=== PATIENT | male | born 1960 | race American Indian/Alaskan Native ===

== ENCOUNTER 2016-11-05 19:48 | Emergency (ER) | payer OTHER ==
[2016-11-05 19:58] VITALS: BP 155/92; PULSE 90; RESP 17; TEMP 98.2; O2SAT 97
--- NOTE | 2016-11-05 20:29 | ED PDOC ---
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 Patient states he tripped over object on floor and fell face forward. Fall witnessed by Jazz, no LOC. Patient in cervical collar; states he was diagnosed with cervical fracture (non surgical treatment) approx 3 weeks ago. Denies headache , dizziness, vision changes, extremity numbness/weakness, neck pain, back pain, shortness of breath. Past Medical History Reviewed: Historical Data, Nursing Documentation, Vital Signs Vital Signs: Last Vital Signs Temp 98.2 F 11/05/16 19:56 Pulse 90 11/05/16 19:56 Resp 17 11/05/16 19:56 BP 155/92 H 11/05/16 19:56 Pulse Ox 97 11/05/16 19:56 - Medical History PMH: Anxiety, CAD, Seizures - Surgical History Surgical History: No Surg Hx - Family History Family History: States: Unknown Family Hx - Living Arrangements Living Arrangements: [facility] - Immunization History Hx Tetanus Toxoid Vaccination: No (unknown) - Allergies Allergies/Adverse Reactions: Allergies Allergy/AdvReac Type Severity Reaction Status Date / Time No Known Allergies Allergy Verified 11/05/16 19:58 Review of Systems ROS Statement: Except As Marked, All Systems Reviewed And Found Negative Skin: Positive for: Other (head/facial injury) Physical Exam - Reviewed Nursing Documentation Reviewed: Yes Vital Signs Reviewed: Yes - Physical Exam Appears: Positive for: Well, Non-toxic, No Acute Distress Head Exam: Negative for: ATRAUMATIC (0.5cm superficial laceration left frontal scalp with + surrounding hematoma; minimal active bleeding) Skin: Positive for: Normal Color Eye Exam: Positive for: EOMI, PERRL, Periorbital swelling (left), Other (0.5cm superficial laceration inferior to left eyebrow; no active bleeding; surrounding tenderness noted. Abrasion left cheek). Negative for: Periorbital tenderness, Conjunctival injection ENT: Positive for: Normal ENT Inspection Neck: Positive for: Normal Cardiovascular/Chest: Positive for: Regular Rate, Rhythm Respiratory: Positive for: Normal Breath Sounds Gastrointestinal/Abdominal: Positive for: Normal Exam Back: Positive for: Normal Inspection Extremity: Positive for: Normal ROM Neurologic/Psych: Positive for: Alert, Oriented - ECG O2 Sat by Pulse Oximetry: 97 - Progress ED Course And Treament: CT head, CT cspine, CT facial, Tylenol PO, Boostrix IM EXAM: CT Head Without Intravenous Contrast CLINICAL HISTORY: 56 years old, male; Injury or trauma; Fall; Initial encounter; Blunt trauma ( contusions or hematomas) TECHNIQUE: Axial computed tomography images of the head/brain without intravenous contrast. This CT exam was performed using one or more of the following dose reduction techniques: automated exposure control, adjustment of the mA and/or kV according to patient size, and/or use of iterative reconstruction technique. Coronal and sagittal reformatted images were created and reviewed. EXAM DATE/TIME: 11/05/2016 8:25 PM COMPARISON: No relevant prior studies available. FINDINGS: BRAIN: Diffuse, mild, age-related cortical atrophy and ventriculomegaly. No significant acute abnormality identified. No acute hemorrhage seen within the brain. No acute extra-axial fluid collections visualized. No evidence of significant mass effect within the brain. VENTRICLES: See above. BONES/JOINTS: No acute skull or skull base fractures visualized. SOFT TISSUES: Soft tissue swelling in the anterior scalp and right posterior scalp. SINUSES:. No evidence of sinus fluid levels. MASTOID AIR CELLS: Mastoid air cells appear clear. IMPRESSION: - No evidence of acute intracranial injury. - See above for remaining findings. EXAM: CT Cervical Spine Without Intravenous Contrast CLINICAL HISTORY: 56 years old, male; Injury or trauma; Fall; Initial encounter; Blunt trauma; Additional info: New fall, h/o cervical FX TECHNIQUE: Axial computed tomography images of the cervical spine without intravenous contrast. This CT exam was performed using one or more of the following dose reduction techniques : automated exposure control, adjustment of the mA and/or kV according to patient size, and/ or use of iterative reconstruction technique. Coronal and sagittal reformatted images were created and reviewed. EXAM DATE/TIME: 11/05/2016 8:25 PM COMPARISON: No relevant prior studies available. FINDINGS: VERTEBRAE: Best seen on image 85 of series 604, there is a fracture of the right lamina of C5. This is linear and nondisplaced. It is not significantly comminuted. It appears recent in nature. There is no significant associated callus formation. No additional acute fractures seen. No significant vertebral subluxation seen on the sagittal reformatted images. Normal alignment of C1 and C2 and of the facet joints. DISCS/SPINAL CANAL/NEURAL FORAMINA: Marked multilevel degenerative disc disease. SOFT TISSUES: No acute abnormality of the visualized soft tissues is seen. LUNG APICES: No pneumothorax seen. IMPRESSION: - Nondisplaced fracture of the right lamina of C5. This appears recent in nature , and could represent the patient's known fracture, as the patient has a reported history of a cervical spine fracture 3 weeks prior. Recommend correlation with prior exams/reports. Findings were discussed with Kiera Bell PA-C on 11/05/2016 at 10:20 PM EDT. - No additional fractures seen.. - See above for remaining findings. EXAM: CT Maxillofacial Without Intravenous Contrast CLINICAL HISTORY: 56 years old, male; Injury or trauma; Fall; Initial encounter; Blunt trauma ( contusions or hematomas); Forehead TECHNIQUE: Axial computed tomography images of the face without intravenous contrast. This CT exam was performed using one or more of the following dose reduction techniques: automated exposure control, adjustment of the mA and/or kV according to patient size, and/or use of iterative reconstruction technique. Coronal and sagittal reformatted images were created and reviewed. EXAM DATE/TIME: 11/05/2016 8:25 PM COMPARISON: No relevant prior studies available. FINDINGS: BONES/JOINTS: Right nasal bone fracture. This is most likely chronic in nature. There is no overlying soft tissue swelling. Recommend clinical correlation. No additional fractures seen. SOFT TISSUES: Left periorbital soft tissue swelling. ORBITS: Intraorbital soft tissues appear grossly intact. No evidence of significant orbital emphysema. SINUSES: Visualized paranasal sinuses appear clear, except for a mucous retention cyst in the right maxillary sinus and minimal mucosal thickening in the bilateral ethmoid sinuses. No evidence of sinus fluid levels. IMPRESSION: - Right nasal bone fracture, which is most likely chronic in nature. Recommend clinical correlation. - No additional fractures seen. - See above for remaining findings. facial lacerations/abrasions irrigated with 250mL NS. Steri strips applied to forehead laceration, left eyebrow laceration. Bacitracin applied to left cheek abrasion. Patient with known cervical spine fracture Advised to follow up as previously instructed. Patient/aide educated on wound care. Follow up PMD 2-3 days. Ice affected areas. Return to ED for fever, increased pain/redness/swelling from wound sites, discharge from wound sites, or other concerning symptoms. Tylenol PRN pain. Disposition - Clinical Impression Clinical Impression: Head injury, Periorbital contusion of left eye, Forehead laceration, Facial abrasion, Cervical spine fracture - Patient ED Disposition Is Patient to be Admitted: No Counseled Patient/Family Regarding: Studies Performed, Diagnosis, Need For Followup - Disposition Disposition: Routine/Home Disposition Time: 23:00 Condition: STABLE Additional Instructions: Follow up with primary doctor in 2-3 days. Follow up with specialist as previously instructed for history of cervical spine fracture. Ice affected areas. Keep steri-strips covered/dry for 24 hours. Once steri-strips fall off wounds, can apply bacitracin/neosporin ointment daily. Return to ED for fever, discharge from wound sites, spreading redness around wound sites, or other concerning symptoms. Instructions: Laceration (ED), Contusion in Adults (ED), Steristrips (ED)
--- NOTE | 2016-11-05 22:04 | CT ---
EXAM: CT Head Without Intravenous Contrast CLINICAL HISTORY: 56 years old, male; Injury or trauma; Fall; Initial encounter; Blunt trauma (contusions or hematomas) TECHNIQUE: Axial computed tomography images of the head/brain without intravenous contrast. This CT exam was performed using one or more of the following dose reduction techniques: automated exposure control, adjustment of the mA and/or kV according to patient size, and/or use of iterative reconstruction technique. Coronal and sagittal reformatted images were created and reviewed. EXAM DATE/TIME: 11/05/2016 8:25 PM COMPARISON: No relevant prior studies available. FINDINGS: BRAIN: Diffuse, mild, age-related cortical atrophy and ventriculomegaly. No significant acute abnormality identified. No acute hemorrhage seen within the brain. No acute extra-axial fluid collections visualized. No evidence of significant mass effect within the brain. VENTRICLES: See above. BONES/JOINTS: No acute skull or skull base fractures visualized. SOFT TISSUES: Soft tissue swelling in the anterior scalp and right posterior scalp. SINUSES:. No evidence of sinus fluid levels. MASTOID AIR CELLS: Mastoid air cells appear clear. IMPRESSION: - No evidence of acute intracranial injury. - See above for remaining findings.
--- NOTE | 2016-11-05 22:21 | CT ---
EXAM: CT Cervical Spine Without Intravenous Contrast CLINICAL HISTORY: 56 years old, male; Injury or trauma; Fall; Initial encounter; Blunt trauma; Additional info: New fall, h/o cervical FX TECHNIQUE: Axial computed tomography images of the cervical spine without intravenous contrast. This CT exam was performed using one or more of the following dose reduction techniques: automated exposure control, adjustment of the mA and/or kV according to patient size, and/or use of iterative reconstruction technique. Coronal and sagittal reformatted images were created and reviewed. EXAM DATE/TIME: 11/05/2016 8:25 PM COMPARISON: No relevant prior studies available. FINDINGS: VERTEBRAE: Best seen on image 85 of series 604, there is a fracture of the right lamina of C5. This is linear and nondisplaced. It is not significantly comminuted. It appears recent in nature. There is no significant associated callus formation. No additional acute fractures seen. No significant vertebral subluxation seen on the sagittal reformatted images. Normal alignment of C1 and C2 and of the facet joints. DISCS/SPINAL CANAL/NEURAL FORAMINA: Marked multilevel degenerative disc disease. SOFT TISSUES: No acute abnormality of the visualized soft tissues is seen. LUNG APICES: No pneumothorax seen. IMPRESSION: - Nondisplaced fracture of the right lamina of C5. This appears recent in nature, and could represent the patient's known fracture, as the patient has a reported history of a cervical spine fracture 3 weeks prior. Recommend correlation with prior exams/reports. Findings were discussed with Kiera Bell PA-C on 11/05/2016 at 10:20 PM EDT. - No additional fractures seen.. - See above for remaining findings.
--- NOTE | 2016-11-05 22:26 | CT ---
EXAM: CT Maxillofacial Without Intravenous Contrast CLINICAL HISTORY: 56 years old, male; Injury or trauma; Fall; Initial encounter; Blunt trauma (contusions or hematomas); Forehead TECHNIQUE: Axial computed tomography images of the face without intravenous contrast. This CT exam was performed using one or more of the following dose reduction techniques: automated exposure control, adjustment of the mA and/or kV according to patient size, and/or use of iterative reconstruction technique. Coronal and sagittal reformatted images were created and reviewed. EXAM DATE/TIME: 11/05/2016 8:25 PM COMPARISON: No relevant prior studies available. FINDINGS: BONES/JOINTS: Right nasal bone fracture. This is most likely chronic in nature. There is no overlying soft tissue swelling. Recommend clinical correlation. No additional fractures seen. SOFT TISSUES: Left periorbital soft tissue swelling. ORBITS: Intraorbital soft tissues appear grossly intact. No evidence of significant orbital emphysema. SINUSES: Visualized paranasal sinuses appear clear, except for a mucous retention cyst in the right maxillary sinus and minimal mucosal thickening in the bilateral ethmoid sinuses. No evidence of sinus fluid levels. IMPRESSION: - Right nasal bone fracture, which is most likely chronic in nature. Recommend clinical correlation. - No additional fractures seen. - See above for remaining findings.
== END 2016-11-05 23:17 | disposition home or self-care (01) ==
LOC: H.ER 19:48
DX: S05.12XA Contusion of eyeball and orbital tissues, left eye, initial encounter (principal); S01.81XA Laceration without foreign body of other part of head, initial encounter; S12.401A Unspecified nondisplaced fracture of fifth cervical vertebra, initial encounter for closed fracture; W01.0XXA Fall on same level from slipping, tripping and stumbling without subsequent striking against object, initial encounter; Y92.89 Other specified places as the place of occurrence of the external cause

== ENCOUNTER 2016-12-04 09:23 | Inpatient (IN) | payer OTHER ==
--- NOTE | 2016-12-04 09:50 | ED PDOC ---
HPI: Head Injury Time Seen by Provider: 12/04/16 09:38 Chief Complaint (Nursing): Trauma Chief Complaint (Provider): Trauma History Per: Patient History/Exam Limitations: no limitations Injury Occurred (Timing): Just Before Arrival Patient States: Fell Striking Head Severity: Mild Loss Of Consciousness: No Additional Complaint(s): Patient is a 56 year old male, brought [facility] ED by EMS from [facility] for fall this morning. As per manager office services of [facility], patient fell twice this morning but has had increasing falls since his C5 fracture in August. Of note, patient has been in a cervical collar since the diagnosis. Past Medical History Reviewed: Historical Data, Nursing Documentation, Vital Signs Vital Signs: Last Vital Signs Temp 98 F 12/04/16 09:24 Pulse 87 12/04/16 09:24 Resp BP 141/76 12/04/16 09:24 Pulse Ox 97 12/04/16 09:24 - Medical History PMH: Anxiety, CAD, Seizures Other PMH: C5 fracture - Surgical History Surgical History: No Surg Hx - Family History Family History: States: Unknown Family Hx - Living Arrangements Living Arrangements: Other ([facility]) - Immunization History Hx Tetanus Toxoid Vaccination: No (unknown) - Home Medications Home Medications: Ambulatory Orders Medication Instructions Recorded Aspirin [Ecotrin] 81 mg PO DAILY 12/04/16 Calcium Carbonate/Vitamin D3 1 tab PO BID 12/04/16 [Oyster Shell Calcium Tablet] Cholecalciferol (Vitamin D3) 2,000 unit PO DAILY 12/04/16 [Vitamin D3] Clonazepam [Klonopin] 0.5 mg PO DAILY 12/04/16 Clonazepam [Klonopin] 0.5 mg PO HS 12/04/16 Lamotrigine [Lamictal] 200 mg PO Q12 12/04/16 Latanoprost 0.005% Opht [Xalatan 1 drop BOTHEYES HS 12/04/16 Opht] Polyethylene Glycol 3350 [Miralax] 17 gm PO DAILY 12/04/16 Zonisamide [Zonegran] 100 mg PO HS 12/04/16 risperiDONE [RisperDAL Tab] 1 mg PO BID 12/04/16 - Allergies Allergies/Adverse Reactions: Allergies Allergy/AdvReac Type Severity Reaction Status Date / Time No Known Allergies Allergy Verified 11/05/16 19:58 Review of Systems ROS Statement: Except As Marked, All Systems Reviewed And Found Negative Constitutional: Negative for: Weakness Eyes: Negative for: Vision Change Cardiovascular: Negative for: Chest Pain Respiratory: Negative for: Shortness of Breath Gastrointestinal: Negative for: Nausea, Vomiting Musculoskeletal: Negative for: Neck Pain, Back Pain Neurological: Negative for: Weakness, Numbness, Headache Physical Exam - Reviewed Nursing Documentation Reviewed: Yes Vital Signs Reviewed: Yes - Physical Exam Appears: Positive for: Non-toxic, No Acute Distress Head Exam: Positive for: ATRAUMATIC, NORMAL INSPECTION Skin: Positive for: Normal Color, Warm Eye Exam: Positive for: Normal appearance Neck: Positive for: Normal ((+) Cervical collar in place) Cardiovascular/Chest: Positive for: Regular Rate, Rhythm. Negative for: Murmur Respiratory: Positive for: Normal Breath Sounds. Negative for: Respiratory Distress Back: Positive for: Normal Inspection. Negative for: Vertebral Tenderness Extremity: Positive for: Normal ROM. Negative for: Calf Tenderness, Deformity Neurologic/Psych: Positive for: Alert (at baseline mental status ) - Laboratory Results Result Diagrams: 12/10/16 06:47 12/10/16 06:47 - ECG O2 Sat by Pulse Oximetry: 97 (RA) Pulse Ox Interpretation: Normal - Critical Care Total Time (In Min): 30 Medical Decision Making Medical Decision Making: Time: 0950 Initial impression: Fall r/o head injury Initial plan: -- CT-head and cervical neck Time: 1100 CT-head PROCEDURE: CT scan brain dated 12/04/2016 HISTORY: Head injury COMPARISON: Comparison made with prior CT scan brain 11/05/2016. TECHNIQUE: Axial computed tomography images were obtained through the head/brain without intravenous contrast. Radiation dose: Total exam DLP = 889.99 mGy-cm. This CT exam was performed using one or more of the following dose reduction techniques: Automated exposure control, adjustment of the mA and/or kV according to patient size, and/or use of iterative reconstruction technique. FINDINGS: HEMORRHAGE: No acute parenchymal, subarachnoid or extra-axial hemorrhage. BRAIN: Jayjay jayjay There appears to be some very minimal chronic periventricular white matter ischemic changes. Questionable small chronic lacunar-type infarct left inferior basal ganglia versus dilated perivascular space. Mild generalized volume loss is noted. VENTRICLES: No evidence of obstructive hydrocephalus. CALVARIUM: Calvarium appears intact without evidence of acute displaced fracture. PARANASAL SINUSES: Visualized paranasal sinuses are well-developed. Mild mucosal thickening seen within the ethmoid air complex. Old right nasal bone fracture deformity. . MASTOID AIR CELLS: Unremarkable as visualized. No inflammatory changes. OTHER FINDINGS: Re- demonstrated is changes of right-sided cataract surgery. IMPRESSION: No acute intracranial hemorrhage. There suspect minimal chronic periventricular white matter ischemic changes. Questionable dilated perivascular space versus tiny chronic lacunar type infarct left inferior basal ganglia. Mild generalized volume loss. Old right nasal bone fracture deformity. Time: 1330 PROCEDURE: CT Cervical Spine without contrast HISTORY: <Head injury> COMPARISON: Comparison made with prior CT scan cervical spine 11/05. TECHNIQUE: Axial computed tomography images were obtained of the cervical spine without the use of intravenous contrast. Coronal and sagittal reformatted images were created and reviewed. Radiation dose: Total exam DLP = mGy-cm. This CT exam was performed using one or more of the following dose reduction techniques: Automated exposure control, adjustment of the mA and/or kV according to patient size, and/or use of iterative reconstruction technique. FINDINGS: VERTEBRAE: Study re- demonstrates mild multilevel chronic appearing anterior stature loss of the C5 and to a lesser degree C6, and less so the remaining levels. . There has been interval slight increase in anterior subluxation C4 over C5. The left- sided superior articular facet joints of C4 are slightly high-riding with respect to the inferior articular facet joint of C5 though not quite the perched. These findings suggest some rotational instability at this at the C4- C5 level. Moderate kyphosis of results from these changes centered at the C4-C5 level also increased from prior study. The note that these findings were discussed with Dr. Brooks at approximately 10:50 a.m. with written down and read back verification. DISCS/SPINAL CANAL/NEURAL FORAMINA: Re- demonstrated is moderate multilevel degenerative spondylosis. At the C2-C3 level, there is mild moderate disc space narrowing. No disc herniation or significant disc bulge. Rule facet joints are mildly hypertrophic with the slight from overgrowth of the joints. Central canal appears adequate. The exit foramina are adequate. Similar changes seen at the C3-C4 level. There is mild moderate disc space narrowing. .No disc herniation or significant disc bulge. Minor on overgrowth of the uncovertebral facets. Central canal and exit foramina do appear adequate. Moderate to significant anterior disc space narrowing noted at the C4-C5 level. No disc herniation or significant disc bulge. Mild hypertrophic uncovertebral facets. Central canal and exit foramina do appear adequate. At the C5-C6 level, there is moderate disc space narrowing. No disc herniation or significant disc bulge. Mildly hypertrophic uncovertebral facet spur however the central canal and exit foramina appear adequate. Similar changes seen at the C6-C7 level. PARASPINAL SOFT TISSUES: Paraspinal soft tissues unremarkable. OTHER FINDINGS: Lung apices are free of focal consolidation on effusion or pneumothorax. Tiny approximately 1.6 mm subpleural nodule right anterior lung apex. Re- demonstrated are multiple small calcifications scattered throughout both palatine tonsils felt to represent chronic postinflammatory sequela IMPRESSION: There has been interval slight increase in anterior subluxation C4 over C5. The left-sided superior articular facet joints of C4 are slightly high-riding with respect to the inferior articular facet joint of C5 though not quite the perched. These findings suggest some rotational instability at this at the C4- C5 level. Moderate kyphosis of results from these changes centered at the C4-C5 level also increased from prior study. . Followup studies could be performed for further evaluation note that these findings were discussed with Dr. Brooks at approximately 10:50 a.m. with written down and read back verification Multilevel degenerative spondylosis. Time: 1415 Case discussed with contacted, requested that Neurosurgery be contacted. Time: [address] Oakley, Neurosurgery oncall, recommends MRI and admission for OR in a couple of days. Scribe Attestation: Documented by Angela Howe acting as a scribe for Mandi Brooks MD MD Scribe Attestation: All medical record entries made by the Scribe were at my direction and personally dictated by me. I have reviewed the chart and agree that the record accurately reflects my personal performance of the history, physical exam, medical decision making, and the department course for this patient. I have also personally directed, reviewed, and agree with the discharge instructions and disposition. Disposition - Clinical Impression Clinical Impression: Closed subluxation of cervical spine - Patient ED Disposition Is Patient to be Admitted: Yes - Disposition Disposition Time: 14:50 Condition: GUARDED - Pt Status Changed To: Hospital Disposition Of: Inpatient - Admit Certification Admit to Inpatient:: After my assessment, the patient will require hospitalization for at least two midnights. This is because of the severity of symptoms shown, intensity of services needed, and/or the medical risk in this patient being treated as an outpatient. - POA Present On Arrival: Falls Or Trauma
--- NOTE | 2016-12-04 11:01 | CT ---
PROCEDURE: CT scan brain dated 12/04/2016 HISTORY: Head injury COMPARISON: Comparison made with prior CT scan brain 11/05/2016. TECHNIQUE: Axial computed tomography images were obtained through the head/brain without intravenous contrast. Radiation dose: Total exam DLP = 889.99 mGy-cm. This CT exam was performed using one or more of the following dose reduction techniques: Automated exposure control, adjustment of the mA and/or kV according to patient size, and/or use of iterative reconstruction technique. FINDINGS: HEMORRHAGE: No acute parenchymal, subarachnoid or extra-axial hemorrhage. BRAIN: Jayjay jayjay There appears to be some very minimal chronic periventricular white matter ischemic changes. Questionable small chronic lacunar-type infarct left inferior basal ganglia versus dilated perivascular space. Mild generalized volume loss is noted. VENTRICLES: No evidence of obstructive hydrocephalus. CALVARIUM: Calvarium appears intact without evidence of acute displaced fracture. PARANASAL SINUSES: Visualized paranasal sinuses are well-developed. Mild mucosal thickening seen within the ethmoid air complex. Old right nasal bone fracture deformity. . MASTOID AIR CELLS: Unremarkable as visualized. No inflammatory changes. OTHER FINDINGS: Re- demonstrated is changes of right-sided cataract surgery. IMPRESSION: No acute intracranial hemorrhage. There suspect minimal chronic periventricular white matter ischemic changes. Questionable dilated perivascular space versus tiny chronic lacunar type infarct left inferior basal ganglia. Mild generalized volume loss. Old right nasal bone fracture deformity.
--- NOTE | 2016-12-04 12:29 | CT ---
PROCEDURE: CT Cervical Spine without contrast HISTORY: <Head injury> COMPARISON: Comparison made with prior CT scan cervical spine 11/05. TECHNIQUE: Axial computed tomography images were obtained of the cervical spine without the use of intravenous contrast. Coronal and sagittal reformatted images were created and reviewed. Radiation dose: Total exam DLP = mGy-cm. This CT exam was performed using one or more of the following dose reduction techniques: Automated exposure control, adjustment of the mA and/or kV according to patient size, and/or use of iterative reconstruction technique. FINDINGS: VERTEBRAE: Study re- demonstrates mild multilevel chronic appearing anterior stature loss of the C5 and to a lesser degree C6, and less so the remaining levels. . There has been interval slight increase in anterior subluxation C4 over C5. The left-sided superior articular facet joints of C4 are slightly high-riding with respect to the inferior articular facet joint of C5 though not quite the perched. These findings suggest some rotational instability at this at the C4-C5 level. Moderate kyphosis of results from these changes centered at the C4-C5 level also increased from prior study. The note that these findings were discussed with Dr. Brooks at approximately 10:50 a.m. with written down and read back verification. DISCS/SPINAL CANAL/NEURAL FORAMINA: Re- demonstrated is moderate multilevel degenerative spondylosis. At the C2-C3 level, there is mild moderate disc space narrowing. No disc herniation or significant disc bulge. Rule facet joints are mildly hypertrophic with the slight from overgrowth of the joints. Central canal appears adequate. The exit foramina are adequate. Similar changes seen at the C3-C4 level. There is mild moderate disc space narrowing. .No disc herniation or significant disc bulge. Minor on overgrowth of the uncovertebral facets. Central canal and exit foramina do appear adequate. Moderate to significant anterior disc space narrowing noted at the C4-C5 level. No disc herniation or significant disc bulge. Mild hypertrophic uncovertebral facets. Central canal and exit foramina do appear adequate. At the C5-C6 level, there is moderate disc space narrowing. No disc herniation or significant disc bulge. Mildly hypertrophic uncovertebral facet spur however the central canal and exit foramina appear adequate. Similar changes seen at the C6-C7 level. PARASPINAL SOFT TISSUES: Paraspinal soft tissues unremarkable. OTHER FINDINGS: Lung apices are free of focal consolidation on effusion or pneumothorax. Tiny approximately 1.6 mm subpleural nodule right anterior lung apex. Re- demonstrated are multiple small calcifications scattered throughout both palatine tonsils felt to represent chronic postinflammatory sequela IMPRESSION: There has been interval slight increase in anterior subluxation C4 over C5. The left-sided superior articular facet joints of C4 are slightly high-riding with respect to the inferior articular facet joint of C5 though not quite the perched. These findings suggest some rotational instability at this at the C4-C5 level. Moderate kyphosis of results from these changes centered at the C4-C5 level also increased from prior study. . Followup studies could be performed for further evaluation note that these findings were discussed with Dr. Brooks at approximately 10:50 a.m. with written down and read back verification Multilevel degenerative spondylosis.
--- NOTE | 2016-12-04 15:16 | CP.PCM.HP ---
<Sosa Gomez - Last Filed: 12/04/16 15:32> History of Present Illness - History of Present Illness History of Present Illness: 56yo M with PMHx mental retardation and seizure admitted for cervical anterior subluxation C4 over C5. sustained injury after fall to the head today. Denies vision change, n/v, weakness, neck pain. Accompanied by rn case mgr PMHx: as above Shx: NC FHx: NC Social hx: denies x3 Allergies : NKDA d/w attending Present on Admission - Present on Admission Any Indicators Present on Admission: No Review of Systems - Constitutional Constitutional: absent: Chills, Fever - EENT Eyes: absent: Change in Vision - Cardiovascular Cardiovascular: absent: Chest Pain - Respiratory Respiratory: absent: Dyspnea - Gastrointestinal Gastrointestinal: absent: Abdominal Pain, Change in Bowel Habits, Diarrhea, Fecal Incontinence, Nausea, Vomiting - Musculoskeletal Musculoskeletal: absent: Back Pain, Neck Pain Past Patient History - Past Social History Smoking Status: Unknown If Ever Smoked - NEUROLOGICAL Hx Seizures: Yes - HEENT Hx HEENT Problems: Yes Hx Glaucoma: Yes - RENAL Hx Chronic Kidney Disease: No - ENDOCRINE/METABOLIC Hx Endocrine Disorders: No - HEMATOLOGICAL/ONCOLOGICAL Hx Blood Disorders: No - INTEGUMENTARY Hx Dermatological Problems: No - MUSCULOSKELETAL/RHEUMATOLOGICAL Hx Musculoskeletal Disorders: Yes Hx Falls: Yes Hx Unsteady Gait: Yes - GASTROINTESTINAL Hx Gastrointestinal Disorders: No - GENITOURINARY/GYNECOLOGICAL Hx Genitourinary Disorders: No - PSYCHIATRIC Hx Anxiety: Yes - SURGICAL HISTORY Hx Surgeries: Yes Other/Comment: Back surgery - ANESTHESIA Hx Anesthesia: Yes Hx Anesthesia Reactions: No Hx Malignant Hyperthermia: No Meds Allergies/Adverse Reactions: Allergies Allergy/AdvReac Type Severity Reaction Status Date / Time No Known Allergies Allergy Verified 11/05/16 19:58 Physical Exam - Constitutional Appears: Non-toxic, No Acute Distress - Head Exam Head Exam: ATRAUMATIC, NORMAL INSPECTION - Eye Exam Eye Exam: EOMI, PERRL - ENT Exam ENT Exam: Mucous Membranes Moist - Neck Exam Neck exam: Positive for: Normal Inspection - Respiratory Exam Respiratory Exam: Clear to Auscultation Bilateral - Cardiovascular Exam Cardiovascular Exam: REGULAR RHYTHM - GI/Abdominal Exam GI & Abdominal Exam: Normal Bowel Sounds, Soft - Extremities Exam Extremities exam: Positive for: normal inspection - Back Exam Back exam: absent: vertebral tenderness - Neurological Exam Neurological exam: Alert, CN II-XII Intact, Oriented x3 - Skin Skin Exam: Dry, Warm Results - Vital Signs Recent Vital Signs: Last Vital Signs Temp 98 F 12/04/16 09:24 Pulse 87 12/04/16 09:24 Resp BP 141/76 12/04/16 09:24 Pulse Ox 97 12/04/16 14:59 Assessment & Plan - Assessment and Plan (Free Text) Assessment: 56yo M with PMHx MR and seizure admitted for cervical anterior subluxation C4 over C5. cervical anterior subluxation C4 over C5. -CT head: no acute change -MRI C/S -N/S c/s -neuro check -bed rest -pain control -neck brace -last ECHO 2 years ago: mild MR, LVEF 65-70% seizure -c/w home meds MR -c/w home meds DVT ppx -SCDs -held pharmacological agents d/t possible surgery Decision To Admit - Pt Status Changed To: Hospital Disposition Of: Inpatient - Admit Certification Admit to Inpatient:: After my assessment, the patient will require hospitalization for at least two midnights. This is because of the severity of symptoms shown, intensity of services needed, and/or the medical risk in this patient being treated as an outpatient. - . Bed Request Type: Med/Surg Admitting Physician: Lucien Urias <Lucien Urias - Last Filed: 12/08/16 15:12> Results - Vital Signs Recent Vital Signs: Last Vital Signs Temp 97.8 F 12/08/16 09:00 Pulse 84 12/08/16 09:00 Resp 20 12/08/16 09:00 BP 153/64 H 12/08/16 09:00 Pulse Ox 95 12/08/16 09:00 - Labs Result Diagrams: 12/06/16 08:00 12/06/16 08:00 Assessment & Plan - Assessment and Plan (Free Text) Plan: I was present during evaluation and discussed with Dr Sosa leyva plans of care and mgt Lucien Urias M.D.
[2016-12-04 16:24] LABS: BASO % 0.7 % (0.0-2.0); EOS # 0.2 K/uL (0.0-0.7); EOS % 4.9 % (0.0-4.0); HEMATOCRIT 43.8 % (35.0-51.0); LYMPH # 2.1 K/uL (1.0-4.3); LYMPH % 41.2 % (20.0-40.0); MEAN CELL VOLUME 88.4 fl (80.0-94.0); MEAN CORPUSCULAR HEMOGLOBIN 29.2 pg (27.0-31.0); MEAN PLATELET VOLUME 9.2 fl (7.2-11.7); MONO # 0.5 K/uL (0.0-0.8); MONO % 9.2 % (0.0-10.0); NEUT # 2.2 K/uL (1.8-7.0); RED CELL DISTRIBUTION WIDTH 15.2 % (11.5-14.5)
[2016-12-04 16:36] LABS: ALB/GLOB RATIO 1.5 (1.0-2.1); ALKALINE PHOSPHATASE 77 U/L (38-126); ALT/SGPT 45 U/L (21-72); AST/SGOT 37 U/L (17-59); BILIRUBIN,TOTAL 0.4 mg/dl (0.2-1.3); BLOOD UREA NITROGEN 16 mg/dl (9-20); CARBON DIOXIDE 26 mmol/L (22-30); CHLORIDE 103 mmol/L (98-107); GFR AFRICAN-AMERICAN > 60; GLUCOSE,RANDOM 83 mg/dL (75-110); POTASSIUM 4.1 MMOL/L (3.6-5.0); SODIUM 141 mmol/l (132-148)
--- NOTE | 2016-12-04 17:25 | MRI ---
PROCEDURE: MRI of the cervical spine dated 12/04/2016 HISTORY: Cervical subluxation. COMPARISON: Comparison made with prior CT scan of the cervical spine obtained earlier same day TECHNIQUE: Multiecho multiplanar sequences were performed through the cervical spine without the use of intravenous contrast. FINDINGS: The current study reveals no acute compression fractures nor retropulsed fragments. Mild chronic anterior stature loss of the C5, C6 and to a lesser degree remaining levels all of which are felt be degenerative in origin. There is mild reversal of the normal cervical lordosis centered at the C4-C5 level. Previously noted slight anterior subluxation C4 over C5 and high-riding left-sided C4 C5 facet joint appears less pronounced on this study. At remaining vertebral bodies otherwise exhibit relatively normal alignment. At the C4-C5 level, there is marked anterior disc space narrowing with large central and bilateral disc herniation at results in significant cord compression centrally and bilaterally left greater than right. There is moderate central canal stenosis. The hypertrophic uncovertebral facet joints are mildly hypertrophic however the exit foramina appear adequate. At the C5-C6 level, there is also disc desiccation and disc space narrowing more so along the anterior disc margin. Medium-sized central and bilateral disc herniation ridge complex results in mild canal narrowing and cord compression. The disc ridge complex contiguous with hypertrophic uncovertebral joints. The facet joints also hypertrophic. Exit foramina not well delineated due to motion artifact although do appear marginal to adequate. At the C6-C7 level, there is disc desiccation and disc space narrowing with asymmetric small broad-based disc ridge complex contiguous with hypertrophic uncovertebral joints larger on the left than right. The facets are hypertrophic. The there is mild flattening of the ventral surface of the thecal sac and minimal if any flattening of the ventral surface of the cord. Central canal is mildly narrowed. Exit foramina appear stenotic bilaterally. At the C3-C4 level, there is disc desiccation and disc space narrowing. Small central and bilateral disc bulge ridge complex also results in mild canal narrowing and cord compression. The facets are slightly overgrown. Exit foramina appear adequate. At the C2-C3 level, there is disc desiccation and disc space narrowing more so along the anterior disc margin. Small central and bilateral disc bulge of results in mild canal narrowing and cord compression. Facets are hypertrophic on the right and mildly overgrown on the left. Right exit foramen is marginal. Left exit foramen is adequate. No definitive intrinsic signal changes are seen within the visualized spinal cord note however note that this study is limited by motion artifact and subtle signal changes within the spinal cord at the C4-C5 level cannot be completely excluded. Cervicomedullary junction unremarkable. Impression: Multilevel degenerative spondylosis. . Re- demonstrated is slight anterior subluxation C4 over C5 and slightly high-riding left-sided C4 is C5 facet joint appear less pronounced when compared the prior CT scan of the cervical spine. There is however a large disc herniation at this level which results in significant canal compromise and cord compression. While there are no definitive of focal areas of abnormal signal seen in the spinal cord at this time must be noted that this examination is somewhat limited by motion artifact and evaluation for subtle signal changes in the cord cannot be completely excluded. Definitive Neurology/ Neurosurgical consultation recommended. See above discussion for additional findings and details. Findings discussed with 6 [facility] nurse Suzanne Fortune at approximately 5:18 p.m. with written down and read back verification.
[2016-12-04 17:39] LABS: PARTIAL THROMBOPLASTIN TIME 27.1 SECONDS (23.3-32.5)
[2016-12-04] MEDS ORDERED: ZONISAMIDE 100 MG PO SCH (22:00)
[2016-12-04] MEDS: Latanoprost 0.005% Opht SOUTION OU SCH (23:01)
[2016-12-05 07:33] LABS: MEAN CELL VOLUME 87.2 fl (80.0-94.0); MEAN CORPUSCULAR HEMOGLOBIN 29.2 pg (27.0-31.0); MEAN CORPUSCULAR HGB CONC 33.5 g/dL (33.0-37.0); RED CELL DISTRIBUTION WIDTH 15.3 % (11.5-14.5); WHITE BLOOD COUNT 4.3 K/uL (4.8-10.8)
[2016-12-05 07:43] LABS: BLOOD UREA NITROGEN 14 mg/dl (9-20); CALCIUM 9.6 mg/dL (8.4-10.2); CARBON DIOXIDE 24 mmol/L (22-30); CHLORIDE 106 mmol/L (98-107); GFR AFRICAN-AMERICAN > 60; GLUCOSE,RANDOM 96 mg/dL (75-110); SODIUM 141 mmol/l (132-148)
[2016-12-05 07:44] LABS: POTASSIUM 4.1 MMOL/L (3.6-5.0)
[2016-12-05] MEDS: POLYETHYLENE GLYCOL 3350 17 GM/Dose PACKET PO SCH ×2 (08:50→10:41)
--- NOTE | 2016-12-05 11:24 | CP.PCM.PN ---
Subjective - Date & Time of Evaluation Date of Evaluation: 12/05/16 Time of Evaluation: 11:22 - Subjective Subjective: consult dictated C4 C5 sulux/hnp/cord compression will need decompression fixation and fusion d/w legal guardian scheduled for tTues am Objective - Vital Signs/Intake and Output Vital Signs (last 24 hours): Temp Pulse Resp BP Pulse Ox 98.2 F 74 20 127/83 98 12/05/16 08:31 12/05/16 08:31 12/05/16 08:31 12/05/16 08:31 12/05/16 08:31 - Medications Medications: Current Medications Acetaminophen (Tylenol 325mg Tab) 650 mg PO Q4 PRN PRN Reason: Pain, moderate (4-7) Clonazepam (Klonopin) 0.5 mg PO DAILY [facility] Last Admin: 12/05/16 10:41 Dose: 0.5 mg Clonazepam (Klonopin) 0.5 mg PO HS [facility] Last Admin: 12/04/16 23:00 Dose: 0.5 mg Ketorolac Tromethamine (Toradol) 30 mg IVP Q6 PRN PRN Reason: Pain, severe (8-10) Lamotrigine (Lamictal) 200 mg PO Q12H [facility] Last Admin: 12/05/16 05:27 Dose: 200 mg Latanoprost (Xalatan Opht) 1 drop OU HS [facility] Last Admin: 12/04/16 23:01 Dose: 1 drop Polyethylene Glycol (Miralax) 17 gm PO DAILY [facility] Last Admin: 12/05/16 10:41 Dose: 17 gm Risperidone (Risperdal Tab) 1 mg PO BID [facility] Last Admin: 12/05/16 10:41 Dose: 1 mg - Labs Labs: 12/05/16 07:18 12/05/16 07:18 PT 10.7 SECONDS (9.6-11.2) 12/04/16 15:39 INR 1.03 (0.92-1.08) 12/04/16 15:39 APTT 27.1 SECONDS (23.3-32.5) 12/04/16 15:39
--- NOTE | 2016-12-05 15:15 | CON ---
DATE: 12/05/2016 HISTORY OF PRESENT ILLNESS: This is a 56-year-old developmentally disabled gentleman, apparently was seen back in August in [facility], was found to have what was then deemed a spinal fracture. He was placed in an Metz collar and sent to rehabilitation. It appears that because of insurance reasons, he had no followup. It seems that he had some x-rays done here in October which also showed a 4-5 subluxation, again unclear what evaluation and followup he had. In any case, the patient keeps f alling. He has had multiple falls. He himself is incapable of giving history, but I did speak to __ ___, his legal guardian who is aware all the above history. His past medical history, medications, allergies, social history are all reviewed in the EMR. PHYSICAL EXAMINATION: GENERAL: The patient does seem to have good strength in all 4 extremities. Wan is negative bila terally. Plantars though are equivocal. Reflexes seem to be within normal limits. Sensory exam is grossly intact. Gait was not tested. He is in an Metz collar. I reviewed both the CT and the MRI of the cervical spine. There is a significant subluxation with __ ___ facet, but fairly close to it with significant angulation and forward displacement of C4 in relat ion to C5. The MRI documents significant extruded disk at this level with severe cord compression. IMPRESSION AND PLAN: Unequivocally, the patient requires operative decompression, fixation, and fusi on. Specifically, I would advocate C5 corpectomy, diskectomy, complete decompression of the spinal c anal from C4 to C6, placement of a fusion strut and plating fixation. I explained this all to the [employer] services representative. Obviously, the risks include, and the risk of surgery include neurolog ic injury, bleeding, infection, hardware malfunction and . The risk of not operating obviously w ould be paralysis, perhaps with the next time he falls. We will arrange to have this procedure performed in the next available operative day. In the interim , he is going for a cardiac clearance, neurology evaluation for his seizures, etc. Cole Novoa MD cc: [phone] TT: 12/05/2016 15:14:24 Confirmation # [id number] Dictation # [id number] rn
--- NOTE | 2016-12-05 15:29 | RAD ---
HISTORY: Admission COMPARISON: NO PRIOR STUDY AVAILABLE FOR COMPARISON FINDINGS: LUNGS: No acute infiltrate. PLEURA: No significant pleural effusion identified, no pneumothorax apparent. CARDIOVASCULAR: Heart size is within range of normal. Aorta is slightly ectatic and uncoiled. OSSEOUS STRUCTURES: There is mild dextroscoliosis centered in the upper thoracic region possibly due to side bending VISUALIZED UPPER ABDOMEN: Normal. OTHER FINDINGS: None. IMPRESSION: No acute cardiopulmonary disease
--- NOTE | 2016-12-05 15:32 | CP.PCM.PN ---
<Sosa Gomez - Last Filed: 12/05/16 15:29> Subjective - Date & Time of Evaluation Date of Evaluation: 12/05/16 Time of Evaluation: 15:29 - Subjective Subjective: evaluated with attending. no overnight events. Denies pain. Objective - Vital Signs/Intake and Output Vital Signs (last 24 hours): Temp Pulse Resp BP Pulse Ox 98.2 F 74 20 127/83 98 12/05/16 08:31 12/05/16 08:31 12/05/16 08:31 12/05/16 08:31 12/05/16 08:31 - Medications Medications: Current Medications Acetaminophen (Tylenol 325mg Tab) 650 mg PO Q4 PRN PRN Reason: Pain, moderate (4-7) Clonazepam (Klonopin) 0.5 mg PO DAILY [facility] Last Admin: 12/05/16 10:41 Dose: 0.5 mg Clonazepam (Klonopin) 0.5 mg PO HS [facility] Last Admin: 12/04/16 23:00 Dose: 0.5 mg Home Med (Patient's Own Medication) 1 unit PO HS [facility] Ketorolac Tromethamine (Toradol) 30 mg IVP Q6 PRN PRN Reason: Pain, severe (8-10) Lamotrigine (Lamictal) 200 mg PO Q12H [facility] Last Admin: 12/05/16 05:27 Dose: 200 mg Latanoprost (Xalatan Opht) 1 drop OU HS [facility] Last Admin: 12/04/16 23:01 Dose: 1 drop Polyethylene Glycol (Miralax) 17 gm PO DAILY [facility] Last Admin: 12/05/16 10:41 Dose: 17 gm Risperidone (Risperdal Tab) 1 mg PO BID [facility] Last Admin: 12/05/16 10:41 Dose: 1 mg - Labs Labs: 12/05/16 07:18 12/05/16 07:18 PT 10.7 SECONDS (9.6-11.2) 12/04/16 15:39 INR 1.03 (0.92-1.08) 12/04/16 15:39 APTT 27.1 SECONDS (23.3-32.5) 12/04/16 15:39 - Constitutional Appears: Non-toxic, No Acute Distress - Head Exam Head Exam: NORMAL INSPECTION - Eye Exam Eye Exam: Normal appearance - ENT Exam ENT Exam: Mucous Membranes Moist Additional comments: neck brace - Neck Exam Neck Exam: Normal Inspection - Respiratory Exam Respiratory Exam: Clear to Ausculation Bilateral - Cardiovascular Exam Cardiovascular Exam: REGULAR RHYTHM - GI/Abdominal Exam GI & Abdominal Exam: Soft - Extremities Exam Extremities Exam: Normal Inspection - Back Exam Back Exam: NORMAL INSPECTION - Neurological Exam Neurological Exam: Alert, Oriented x3 - Skin Skin Exam: Dry, Warm Assessment and Plan - Assessment and Plan (Free Text) Assessment: 56yo M with PMHx MR and seizure admitted for cervical anterior subluxation C4 over C5. procedure for tues am cervical anterior subluxation C4 over C5. -CT head: no acute change -MRI C/S -N/S c/s -neuro c/s -neuro check -bed rest -pain control -neck brace -last ECHO 2 years ago: mild MR, LVEF 65-70% -ECHO -CXR -Cardio c/s seizure -c/w home meds MR -c/w home meds DVT ppx -SCDs -lovenox <Lucien Urias - Last Filed: 12/08/16 15:13> Objective - Vital Signs/Intake and Output Vital Signs (last 24 hours): Temp Pulse Resp BP Pulse Ox 97.8 F 84 20 153/64 H 95 12/08/16 09:00 12/08/16 09:00 12/08/16 09:00 12/08/16 09:00 12/08/16 09:00 - Medications Medications: Current Medications Acetaminophen (Tylenol 325mg Tab) 650 mg PO Q4 PRN PRN Reason: Pain, moderate (4-7) Clonazepam (Klonopin) 0.5 mg PO DAILY [facility] Last Admin: 12/08/16 09:31 Dose: 0.5 mg Clonazepam (Klonopin) 0.5 mg PO [facility] Last Admin: 12/07/16 21:55 Dose: 0.5 mg Home Med (Patient's Own Medication) 2 unit PO [facility] Last Admin: 12/07/16 21:54 Dose: 2 unit Ketorolac Tromethamine (Toradol) 30 mg IVP Q6 PRN PRN Reason: Pain, severe (8-10) Lamotrigine (Lamictal) 200 mg PO Q12H [facility] Last Admin: 12/08/16 05:00 Dose: 200 mg Latanoprost (Xalatan Opht) 1 drop OU HS [facility] Last Admin: 12/07/16 21:54 Dose: 1 drop Polyethylene Glycol (Miralax) 17 gm PO DAILY [facility] Last Admin: 12/08/16 09:31 Dose: 17 gm Risperidone (Risperdal Tab) 1 mg PO BID [facility] Last Admin: 12/08/16 09:32 Dose: 1 mg - Labs Labs: 12/06/16 08:00 12/06/16 08:00 PT 10.9 SECONDS (9.6-11.2) 12/06/16 08:00 INR 1.05 (0.92-1.08) 12/06/16 08:00 APTT 28.0 SECONDS (23.3-32.5) 12/06/16 08:00 Assessment and Plan - Assessment and Plan (Free Text) Plan: I was present during evaluation reviewed labs medically stable for neuro surgery Lucien Urias M.D.
--- NOTE | 2016-12-05 16:37 | CON ---
DATE: 12/05/2016 REASON FOR CONSULTATION: Preoperative clearance. HISTORY OF PRESENT ILLNESS: The patient is a 56-year-old -[place] male who has history of me ntal and seizures, history of multiple falls, admitted for surgical anterior subluxation of C4 over C5 after a fall and head injury. The patient is being considered for spine surgery. The patien t denies any chest pain or shortness of breath and denies any history of heart attack in the past. H istory is very reliable from the patient. SOCIAL HISTORY: According to the attendant at the bedside, the patient lives in a fci. MEDICATIONS: Heparin 5000 units subcutaneous twice a day, Klonopin 0.5 mg at bedtime, Lamictal 200 m g twice a day, Toradol 30 mg intravenous q. 6 hours p.r.n. and Risperdal 1 mg p.o. twice a day. REVIEW OF SYSTEMS: No reported seizures or falls on the floor. The patient has . PHYSICAL EXAMINATION: GENERAL: The patient is a middle-aged male who does not appear to be in acute distress. He has a ne ck collar. VITAL SIGNS: Blood pressure 127/83, heart rate 74, temperature 98.2 and respirations 20. HEENT: Normocephalic. NECK: A neck collar is applied. CHEST: Clear. HEART: S1, S2 regular. ABDOMEN: Soft. EXTREMITIES: No edema. LABORATORY DATA: CBC: WBC 4.3, hemoglobin 14.4, hematocrit 43 and platelet count 218,000. SMA-7 is within normal limits today. Liver enzymes are within normal limits. PT/PTT and INR within normal l imits. EKG revealed normal sinus rhythm. Cervical spine MRI performed yesterday concluded slight an terior subluxation C4 over C5 and slightly high-riding left-sided C4 and C5 facet joint appear less p ronounced when compared to prior CT scan of the cervical spine. There is, however, a large disk rosemary iation at the level which resulted in significant canal compromise and cord compression. Definitive neurology/neurosurgical consultation recommended. ASSESSMENT: 1. C4 over C5 subluxation with significant canal compromise and cord compression. 2. Seizure disorders. 3. History of multiple falls and head injury. RECOMMENDATIONS: Continue current 1:1 watch with fall and seizure precautions. Continue subcutaneou s heparin 5000 units twice a day. Continue current clonazepam at 0.5 mg orally once a day, Lamictal 200 mg twice a day, Toradol ____ q. 6 hours p.r.n. I will review the echocardiographic study prior t o clearing the patient for spinal surgery. Ronnie Lazar MD cc: [id number] TT: 12/05/2016 16:37:00 Confirmation # [id number] Dictation # [id number] sn
--- NOTE | 2016-12-05 17:41 | CP.PCM.CON ---
History of Present Illness - History of Present Illness History of Present Illness: Mr. Wolf is a 56-year-old man with a past medical history of developmental delay, mental retardation and seizure disorder. He had a witnessed seizure at his alf. Apparently, he sustained injury to his neck in August with subluxation of C4/5 and is to have surgery next week. Neurology was consulted to evaluate his AEDs and determine if he is adequately controlled. The patient had no complaints. Review of Systems - Review of Systems Systems not reviewed;Unavailable: Dementia All systems: reviewed and no additional remarkable complaints except Past Patient History - Past Medical History & Family History Past Medical History?: Yes - Past Social History Smoking Status: Never Smoked - CARDIAC Hx Cardiac Disorders: No - PULMONARY Hx Respiratory Disorders: No - NEUROLOGICAL Hx Neurological Disorder: Yes Hx Seizures: Yes - HEENT Hx HEENT Problems: No - RENAL Hx Chronic Kidney Disease: No - ENDOCRINE/METABOLIC Hx Endocrine Disorders: No - HEMATOLOGICAL/ONCOLOGICAL Hx Blood Disorders: No - INTEGUMENTARY Hx Dermatological Problems: No - MUSCULOSKELETAL/RHEUMATOLOGICAL Hx Falls: Yes - GASTROINTESTINAL Hx Gastrointestinal Disorders: No - GENITOURINARY/GYNECOLOGICAL Hx Genitourinary Disorders: No - PSYCHIATRIC Hx Bipolar Disorder: Yes Hx Substance Use: No Other/Comment: Paranoid disorder. Traumatic brain injury. moderate mental retardation. Impulse control disorder - SURGICAL HISTORY Hx Surgeries: Yes Other/Comment: Back surgery - ANESTHESIA Hx Anesthesia: Yes Hx Anesthesia Reactions: No Hx Malignant Hyperthermia: No Meds Allergies/Adverse Reactions: Allergies Allergy/AdvReac Type Severity Reaction Status Date / Time No Known Allergies Allergy Verified 11/05/16 19:58 - Medications Medications: Current Medications Acetaminophen (Tylenol 325mg Tab) 650 mg PO Q4 PRN PRN Reason: Pain, moderate (4-7) Clonazepam (Klonopin) 0.5 mg PO DAILY [facility] Last Admin: 12/05/16 10:41 Dose: 0.5 mg Clonazepam (Klonopin) 0.5 mg PO HS [facility] Last Admin: 12/04/16 23:00 Dose: 0.5 mg Heparin Sodium (Porcine) (Heparin) 5,000 units SC Q12 ERVIN PRN Reason: Protocol Stop: 12/08/16 10:00 Home Med (Patient's Own Medication) 2 unit PO HS [facility] Ketorolac Tromethamine (Toradol) 30 mg IVP Q6 PRN PRN Reason: Pain, severe (8-10) Lamotrigine (Lamictal) 200 mg PO Q12H [facility] Last Admin: 12/05/16 17:19 Dose: 200 mg Latanoprost (Xalatan Opht) 1 drop OU HS [facility] Last Admin: 12/04/16 23:01 Dose: 1 drop Polyethylene Glycol (Miralax) 17 gm PO DAILY [facility] Last Admin: 12/05/16 10:41 Dose: 17 gm Risperidone (Risperdal Tab) 1 mg PO BID [facility] Last Admin: 12/05/16 17:20 Dose: 1 mg Physical Exam - Constitutional Appears: Well - Head Exam Head Exam: ATRAUMATIC, NORMAL INSPECTION, NORMOCEPHALIC - Eye Exam Eye Exam: EOMI, Normal appearance, PERRL - ENT Exam ENT Exam: Mucous Membranes Moist, Normal Exam - Neck Exam Neck exam: Positive for: Normal Inspection - Respiratory Exam Respiratory Exam: Clear to Auscultation Bilateral, NORMAL BREATHING PATTERN - Cardiovascular Exam Cardiovascular Exam: REGULAR RHYTHM, +S1, +S2 - GI/Abdominal Exam GI & Abdominal Exam: Normal Bowel Sounds, Soft. absent: Tenderness - Rectal Exam Rectal Exam: Deferred - Extremities Exam Extremities exam: Positive for: normal inspection - Back Exam Back exam: NORMAL INSPECTION - Neurological Exam Neurological exam: Alert, CN II-XII Intact, Normal Gait, Oriented x3, Reflexes Normal - Expanded Neurological Exam Expanded Patient oriented to: person, place Cranial nerves: EOM's Intact: Normal, Facial Sensation: Normal Cerebellar Function: Finger to Nose: Normal Upper motor neuron: Babinski Sign: Normal Sensory exam: Lower Extremity Light Touch: Normal, Lower Extremity Pin Prick: Normal, Upper Extremity Light Touch: Normal, Upper Extremity Pin Prick: Normal Neuro motor strength exam: Left Upper Extremity: 5, Right Upper Extremity: 5, Left Lower Extremity: 5, Right Lower Extremity: 5 DTR: Achilles Tendon Left: 2+, Achilles Tendon Right: 2+, Bicep Left: 2+, Bicep Right: 2+, Brachioradialis Left: 2+, Brachioradialis Right: 2+, Patellar Left: 2 +, Patellar Right: 2+, Tricep Left: 2+, Tricep Right: 2+ Results - Vital Signs Recent Vital Signs: Last Vital Signs Temp 98.6 F 12/05/16 16:23 Pulse 73 12/05/16 16:23 Resp 20 05/26/17 16:23 BP 123/77 12/05/16 16:23 Pulse Ox 99 12/05/16 16:23 - Labs Result Diagrams: 12/05/16 07:18 12/05/16 07:18 Labs: Laboratory Results - last 24 hr 12/04/16 12/04/16 12/04/16 15:39 15:39 21:00 WBC RBC Hgb Hct MCV MCH MCHC RDW Plt Count PT 10.7 INR 1.03 APTT 27.1 Sodium Potassium Chloride Carbon Dioxide Anion Gap BUN Creatinine Est GFR ( Amer) Est GFR (Non-Af Amer) Random Glucose Calcium Blood Type B POSITIVE Blood Type Confirm B POSITIVE Antibody Screen Negative 12/05/16 12/05/16 07:18 07:18 WBC 4.3 L RBC 4.93 Hgb 14.4 Hct 43.0 MCV 87.2 MCH 29.2 MCHC 33.5 RDW 15.3 H Plt Count 218 PT INR APTT Sodium 141 Potassium 4.1 Chloride 106 Carbon Dioxide 24 Anion Gap 15 BUN 14 Creatinine 1.0 Est GFR ( Amer) > 60 Est GFR (Non-Af Amer) > 60 Random Glucose 96 Calcium 9.6 Blood Type Blood Type Confirm Antibody Screen Assessment & Plan (1) Seizure disorder Assessment and Plan: The patient has a history of epilepsy and had a recent seizure. His lamictal dose is currently nearly maxed out, but the zonisamide may be increased to 200 mg QHS. I recommend increasing the dose of zonisamide and continuing the current dose of lamictal. Further management of the C4/5 fracture or subluxation will be deferred to neurosurgery. Thank you for this consultation. Status: Acute Priority: Medium
--- NOTE | 2016-12-05 17:55 | CARD ---
APPROVED REPORT EXAM: Two-dimensional and M-mode echocardiogram with Doppler and color Doppler. Other Information Quality : GoodRhythm : NSR Technically limited study due to Poor 4C window. INDICATION Pre-Op 2D DIMENSIONS IVSd1.40 (0.7-1.1cm)LVDd4.52 (3.9-5.9cm) LVOT Diameter2.36 (1.8-2.4cm)PWd1.16 (0.7-1.1cm) IVSs1.44 (0.8-1.2cm)LVDs2.77 (2.5-4.0cm) FS (%) 38.8 %PWs1.42 (0.8-1.2cm) M-Mode DIMENSIONS Left Atrium (MM)3.97 (2.5-4.0cm)IVSd1.25 (0.7-1.1cm) Aortic Root2.97 (2.2-3.7cm)LVDd4.97 (4.0-5.6cm) Aortic Cusp Exc.2.16 (1.5-2.0cm)PWd1.13 (0.7-1.1cm) IVSs1.34 cmFS (%) 44 % LVDs2.78 (2.0-3.8cm)PWs1.31 cm Mitral Valve E/A ratio0.0 TDI E/Lateral E'0.0E/Medial E'0.0 LEFT VENTRICLE The left ventricle is normal size. There is moderate concentric left ventricular hypertrophy. The left ventricular function is normal. The left ventricular ejection fraction is 60-65% There is normal LV segmental wall motion. Transmitral Doppler flow pattern is Grade I-abnormal relaxation pattern. No left ventricle thrombus noted on this study. There is no ventricular septal defect visualized. There is no left ventricular aneurysm. There is no mass noted in the left ventricle. RIGHT VENTRICLE The right ventricle is normal size. There is normal right ventricular wall thickness. The right ventricular systolic function is normal. ATRIA The left atrium size is normal. The right atrium size is normal. The interatrial septum is intact with no evidence for an atrial septal defect. AORTIC VALVE The aortic valve is normal in structure and function. No aortic regurgitation is present. There is no aortic valvular stenosis. There is no aortic valvular vegetation. MITRAL VALVE The mitral valve is normal in structure and function. There is no evidence of mitral valve prolapse. There is no mitral valve stenosis. There is no mitral valve regurgitation noted. TRICUSPID VALVE The tricuspid valve is normal in structure and function. There is no tricuspid valve regurgitation noted. There is no tricuspid valve prolapse or vegetation. There is no tricuspid valve stenosis. PULMONIC VALVE The pulmonary valve is normal in structure and function. There is no pulmonic valvular regurgitation. There is no pulmonic valvular stenosis. GREAT VESSELS The aortic root is normal in size. The ascending aorta is normal in size. The IVC is normal in size and collapses >50% with inspiration. PERICARDIAL EFFUSION The pericardium appears normal. There is no pleural effusion. <Conclusion> Normal LV systolic function Concentric LVH
--- NOTE | 2016-12-05 18:49 | CARD ---
APPROVED REPORT EKG Measurement Heart [id number] <Conclusion> Normal sinus rhythm Normal ECG
[2016-12-05] MEDS: ZONEGRAN 100 MG PO SCH (21:50)
[2016-12-05] MEDS: Latanoprost 0.005% Opht SOUTION OU SCH (21:59)
[2016-12-05] MEDS ORDERED: ZONEGRAN 100 MG PO SCH (22:00)
[2016-12-06 09:38] LABS: HEMATOCRIT 45.1 % (35.0-51.0); MEAN CELL VOLUME 87.4 fl (80.0-94.0); MEAN CORPUSCULAR HEMOGLOBIN 29.2 pg (27.0-31.0); MEAN CORPUSCULAR HGB CONC 33.4 g/dL (33.0-37.0); WHITE BLOOD COUNT 4.1 K/uL (4.8-10.8)
[2016-12-06 09:58] LABS: BLOOD UREA NITROGEN 15 mg/dl (9-20); CALCIUM 9.7 mg/dL (8.4-10.2); CARBON DIOXIDE 26 mmol/L (22-30); CHLORIDE 104 mmol/L (98-107); GFR AFRICAN-AMERICAN > 60; GLUCOSE,RANDOM 124 mg/dL (75-110); POTASSIUM 3.8 MMOL/L (3.6-5.0); SODIUM 140 mmol/l (132-148)
[2016-12-06] MEDS: POLYETHYLENE GLYCOL 3350 17 GM/Dose PACKET PO SCH (10:05)
--- NOTE | 2016-12-06 12:07 | CP.PCM.PN ---
Subjective - Date & Time of Evaluation Date of Evaluation: 12/06/16 Time of Evaluation: 12:07 - Subjective Subjective: Patient feels a lot better. Has no chest pain or SOB On one to one. Scheduled for surgery Thursday. Objective - Vital Signs/Intake and Output Vital Signs (last 24 hours): Temp Pulse Resp BP Pulse Ox 97.5 F L 73 18 112/66 92 L 12/06/16 07:44 12/06/16 07:44 12/06/16 07:44 12/06/16 07:44 12/06/16 07:44 - Medications Medications: Current Medications Acetaminophen (Tylenol 325mg Tab) 650 mg PO Q4 PRN PRN Reason: Pain, moderate (4-7) Clonazepam (Klonopin) 0.5 mg PO DAILY [facility] Last Admin: 12/06/16 10:05 Dose: 0.5 mg Clonazepam (Klonopin) 0.5 mg PO HS [facility] Last Admin: 12/05/16 21:50 Dose: 0.5 mg Heparin Sodium (Porcine) (Heparin) 5,000 units SC Q12 ERVIN PRN Reason: Protocol Stop: 12/08/16 10:00 Last Admin: 12/06/16 10:06 Dose: 5,000 units Home Med (Patient's Own Medication) 2 unit PO [facility] Last Admin: 12/05/16 21:50 Dose: 2 unit Ketorolac Tromethamine (Toradol) 30 mg IVP Q6 PRN PRN Reason: Pain, severe (8-10) Lamotrigine (Lamictal) 200 mg PO Q12H [facility] Last Admin: 12/06/16 05:18 Dose: 200 mg Latanoprost (Xalatan Opht) 1 drop OU [facility] Last Admin: 12/05/16 21:59 Dose: 1 drop Polyethylene Glycol (Miralax) 17 gm PO DAILY [facility] Last Admin: 12/06/16 10:05 Dose: 17 gm Risperidone (Risperdal Tab) 1 mg PO BID [facility] Last Admin: 12/06/16 10:05 Dose: 1 mg - Labs Labs: 12/06/16 08:00 12/06/16 08:00 PT 10.9 SECONDS (9.6-11.2) 12/06/16 08:00 INR 1.05 (0.92-1.08) 12/06/16 08:00 APTT 28.0 SECONDS (23.3-32.5) 12/06/16 08:00 - Head Exam Head Exam: NORMAL INSPECTION - Eye Exam Eye Exam: Normal appearance - ENT Exam ENT Exam: Mucous Membranes Moist - Respiratory Exam Respiratory Exam: Clear to Ausculation Bilateral - Cardiovascular Exam Cardiovascular Exam: REGULAR RHYTHM - GI/Abdominal Exam GI & Abdominal Exam: Normal Bowel Sounds - Neurological Exam Neurological Exam: Awake, CN II-XII Intact Assessment and Plan - Assessment and Plan (Free Text) Plan: cont meds cont tx cont pain meds
--- NOTE | 2016-12-06 16:55 | PN ---
DATE: 12/06/2016 The patient denies any chest pain, headache or shortness of breath. PHYSICAL EXAMINATION: VITAL SIGNS: Blood pressure 112/66, heart rate 73, temperature 97.5 and respirations 18. HEENT: Normocephalic. NECK: Collar is applied. CHEST: Clear. HEART: S1, S2 regular. EXTREMITIES: No edema. LABORATORY DATA: CBC: WBC 4.1, hemoglobin 15.1, hematocrit 45.1 and platelet count 131,000. SMA-7 i s within normal limits except for glucose of 124. Echocardiographic study performed yesterday reveal ed normal left ventricular systolic function with concentric left ventricular hypertrophy. ASSESSMENT: 1. History of multiple falls with head injury. 2. C4 over C5 subluxation with significant spinal canal compromise and cord compression. 3. Seizure disorder. 4. Left ventricular hypertrophy by echocardiogram. RECOMMENDATIONS: Continue current medical management. The patient can undergo his spinous surgery o thursday with postoperative ICU monitoring. Again, the patient can undergo spinal surgery from the cardiac point. Postoperative ICU monitoring. Ronnie Lazar MD cc: [id number] TT: 12/06/2016 16:54:20 Confirmation # [id number] Dictation # [id number] sn
[2016-12-06] MEDS: ZONEGRAN 100 MG PO SCH (22:48)
[2016-12-06] MEDS: Latanoprost 0.005% Opht SOUTION OU SCH (22:56)
[2016-12-07] MEDS: POLYETHYLENE GLYCOL 3350 17 GM/Dose PACKET PO SCH (11:08)
--- NOTE | 2016-12-07 12:56 | CP.PCM.PN ---
Subjective - Date & Time of Evaluation Date of Evaluation: 12/07/16 Time of Evaluation: 12:55 - Subjective Subjective: Patient is faily stable On one to one watch. Has no fever. Has no cough Objective - Vital Signs/Intake and Output Vital Signs (last 24 hours): Temp Pulse Resp BP Pulse Ox 98.1 F 81 20 108/52 L 98 12/07/16 07:38 12/07/16 07:38 12/07/16 07:38 12/07/16 07:38 12/07/16 07:38 - Medications Medications: Current Medications Acetaminophen (Tylenol 325mg Tab) 650 mg PO Q4 PRN PRN Reason: Pain, moderate (4-7) Clonazepam (Klonopin) 0.5 mg PO DAILY [facility] Last Admin: 12/07/16 11:07 Dose: 0.5 mg Clonazepam (Klonopin) 0.5 mg PO HS [facility] Last Admin: 12/06/16 22:49 Dose: 0.5 mg Heparin Sodium (Porcine) (Heparin) 5,000 units SC Q12 [facility] PRN Reason: Protocol Stop: 12/08/16 10:00 Last Admin: 12/07/16 11:08 Dose: 5,000 units Home Med (Patient's Own Medication) 2 unit PO [facility] Last Admin: 12/06/16 22:48 Dose: 2 unit Ketorolac Tromethamine (Toradol) 30 mg IVP Q6 PRN PRN Reason: Pain, severe (8-10) Lamotrigine (Lamictal) 200 mg PO Q12H [facility] Last Admin: 12/07/16 06:05 Dose: 200 mg Latanoprost (Xalatan Opht) 1 drop OU [facility] Last Admin: 12/06/16 22:56 Dose: 1 drop Polyethylene Glycol (Miralax) 17 gm PO DAILY [facility] Last Admin: 12/07/16 11:08 Dose: 17 gm Risperidone (Risperdal Tab) 1 mg PO BID [facility] Last Admin: 12/07/16 11:08 Dose: 1 mg - Labs Labs: 12/06/16 08:00 12/06/16 08:00 PT 10.9 SECONDS (9.6-11.2) 12/06/16 08:00 INR 1.05 (0.92-1.08) 12/06/16 08:00 APTT 28.0 SECONDS (23.3-32.5) 12/06/16 08:00 - Head Exam Head Exam: NORMAL INSPECTION - Eye Exam Eye Exam: Normal appearance - ENT Exam ENT Exam: Mucous Membranes Moist - Respiratory Exam Respiratory Exam: Clear to Ausculation Bilateral - Cardiovascular Exam Cardiovascular Exam: REGULAR RHYTHM - GI/Abdominal Exam GI & Abdominal Exam: Normal Bowel Sounds - Neurological Exam Neurological Exam: Awake, CN II-XII Intact Assessment and Plan (1) Subluxation of C4-C5 cervical vertebrae Status: Acute (2) Seizure disorder Status: Acute - Assessment and Plan (Free Text) Plan: Medically stable for surgery labs reviewd
--- NOTE | 2016-12-07 17:33 | PN ---
DATE: 12/07/2016 The patient denies chest pain or shortness of breath. He is on 1:1 watch. No reported syncope or fa ll. PHYSICAL EXAMINATION: VITAL SIGNS: Blood pressure 108/52, heart rate 81, temperature 98.1, respirations 20. HEENT: Normocephalic. CHEST: Clear. HEART: S1, S2 regular. EXTREMITIES: No edema. ASSESSMENT: 1. Multiple falls with head injury. 2. Cervical spine subluxation of C4 over C5 with significant spinal canal compromise and cord compre ssion. 3. Left ventricular hypertrophy by echocardiograph study RECOMMENDATIONS: Continue current subcutaneous heparin 5000 units twice a day, Klonopin 0.5 mg daily , Lamictal 200 mg twice a day. The patient can undergo spinal surgery with postoperative ICU monitor ing. Ronnie Lazar MD cc: [id number] TT: 12/07/2016 17:32:05 Confirmation # [id number] Dictation # [id number] en
[2016-12-07] MEDS: ZONEGRAN 100 MG PO SCH (21:54)
[2016-12-07] MEDS: Latanoprost 0.005% Opht SOUTION OU SCH (21:54)
[2016-12-08] MEDS: POLYETHYLENE GLYCOL 3350 17 GM/Dose PACKET PO SCH (09:31)
--- NOTE | 2016-12-08 15:18 | CP.PCM.PN ---
Subjective - Date & Time of Evaluation Date of Evaluation: 12/08/16 Time of Evaluation: 15:16 - Subjective Subjective: patient remains stable Has no chest pain or SOB afebile. Objective - Vital Signs/Intake and Output Vital Signs (last 24 hours): Temp Pulse Resp BP Pulse Ox 97.8 F 84 20 153/64 H 95 12/08/16 09:00 12/08/16 09:00 12/08/16 09:00 12/08/16 09:00 12/08/16 09:00 - Medications Medications: Current Medications Acetaminophen (Tylenol 325mg Tab) 650 mg PO Q4 PRN PRN Reason: Pain, moderate (4-7) Clonazepam (Klonopin) 0.5 mg PO DAILY [facility] Last Admin: 12/08/16 09:31 Dose: 0.5 mg Clonazepam (Klonopin) 0.5 mg PO HS [facility] Last Admin: 12/07/16 21:55 Dose: 0.5 mg Home Med (Patient's Own Medication) 2 unit PO [facility] Last Admin: 12/07/16 21:54 Dose: 2 unit Ketorolac Tromethamine (Toradol) 30 mg IVP Q6 PRN PRN Reason: Pain, severe (8-10) Lamotrigine (Lamictal) 200 mg PO Q12H [facility] Last Admin: 12/08/16 05:00 Dose: 200 mg Latanoprost (Xalatan Opht) 1 drop OU [facility] Last Admin: 12/07/16 21:54 Dose: 1 drop Polyethylene Glycol (Miralax) 17 gm PO DAILY [facility] Last Admin: 12/08/16 09:31 Dose: 17 gm Risperidone (Risperdal Tab) 1 mg PO BID [facility] Last Admin: 12/08/16 09:32 Dose: 1 mg - Labs Labs: 12/06/16 08:00 12/06/16 08:00 PT 10.9 SECONDS (9.6-11.2) 12/06/16 08:00 INR 1.05 (0.92-1.08) 12/06/16 08:00 APTT 28.0 SECONDS (23.3-32.5) 12/06/16 08:00 - Head Exam Head Exam: NORMAL INSPECTION - Eye Exam Eye Exam: Normal appearance - ENT Exam ENT Exam: Mucous Membranes Moist - Respiratory Exam Respiratory Exam: Clear to Ausculation Bilateral - Cardiovascular Exam Cardiovascular Exam: REGULAR RHYTHM - GI/Abdominal Exam GI & Abdominal Exam: Normal Bowel Sounds - Neurological Exam Neurological Exam: CN II-XII Intact Assessment and Plan (1) Subluxation of C4-C5 cervical vertebrae Status: Acute (2) Seizure disorder Status: Acute - Assessment and Plan (Free Text) Plan: Con tmeds con ttx cont PT medically stable for surgery
--- NOTE | 2016-12-08 17:24 | PN ---
DATE: 12/08/2016 SUBJECTIVE: The patient denies any chest pain, no shortness breath. PHYSICAL EXAMINATION: VITAL SIGNS: Blood pressure 112/65, heart rate 78, temperature 98.4, respirations 18. HEENT: Normocephalic. NECK: No JVD. CHEST: Clear. HEART: S1, S2 regular. EXTREMITIES: No edema. ASSESSMENT: 1. Seizure disorder. 2. Status post multiple falls. 3. Cervical spine subluxation of C4-C5 for significant spinal canal compromise and cord compression. 4. Concentric left ventricular hypertrophy by echocardiography study. RECOMMENDATIONS: Continue current medications including Klonopin, Lamictal and p.r.n. Toradol. The patient can undergo spinal surgery from the cardiac point of view with postoperative ICU monitoring. Ronnie Lazar MD cc: [id number] TT: 12/08/2016 17:23:26 Confirmation # [id number] Dictation # [id number]
[2016-12-08] MEDS: Latanoprost 0.005% Opht SOUTION OU SCH (21:56)
[2016-12-08] MEDS: ZONEGRAN 100 MG PO SCH (23:10)
[2016-12-09] MEDS: POLYETHYLENE GLYCOL 3350 17 GM/Dose PACKET PO SCH (08:28)
[2016-12-09] MEDS ORDERED: Propofol 10 mg/ml Inj (20 ML) ONE ×5 (09:58→15:10)
[2016-12-09] MEDS ORDERED: Succinylcholine 200 mg/10 ml Inj IV ONE (10:06)
[2016-12-09] MEDS ORDERED: Midazolam 2 MG/2 ML VIAL ONE (10:06)
[2016-12-09] MEDS ORDERED: ePHEDrine 50 mg/ml Inj ONE (10:58)
[2016-12-09] MEDS ORDERED: Absorbable Gelatin Sponge Size 100 ONE (11:08)
[2016-12-09] MEDS ORDERED: Bupivacaine 0.5% Inj(30mL) ONE (11:08)
[2016-12-09] MEDS ORDERED: Thrombin Topical 5,000 IU Spray Kit ONE (11:09)
[2016-12-09] MEDS ORDERED: Lactated Ringer's 1,000 ML IV ONE ×3 (12:40→18:00)
[2016-12-09] MEDS ORDERED: HEMOSTATIC MATRIX 10 ML DIS.NEEDLE TOP ONE (13:30)
[2016-12-09] MEDS ORDERED: Bacitracin OINT 15GM TOP ONE (13:35)
[2016-12-09] MEDS ORDERED: Thrombin Topical 5,000 IU Spray Kit TOP ONE (14:07)
[2016-12-09] MEDS ORDERED: Absorbable Gelatin Sponge Size 100 TP ONE (14:08)
[2016-12-09] MEDS ORDERED: Dexamethasone 4 mg/1 ml ONE (14:12)
[2016-12-09] MEDS ORDERED: Lactated Ringer's 1,000 ML IV SCH (16:03)
[2016-12-09] MEDS ORDERED: HYDROmorphone 0.5 mg/0.5 ml ISec ONE (16:03)
[2016-12-09] MEDS: HYDROmorphone 0.5 mg/0.5 ml ISec IVP PRN ×3 (16:10→16:50)
--- NOTE | 2016-12-09 18:38 | CP.CCUPN ---
CCU Subjective - Physician Review Events Since Last Encounter (Free Text): 12/09/16 18:38 The Patient was seen and examined at the bedside, Medical records reviewed, all clinical/lab/hemodynamic/radiographic data were reviewed and management issues were discussed and formulated, Events reviewed, Patient with Subluxation of C4-C5 cervical vertebrae, cord compression admitted to the ICU following decompression fixation and fusion for post-op monitoring Successfully extubated Awake, comfortable Hemodynamically stable 12/09/16 18:40 CCU Objective - Vital Signs / Intake & Output Vital Signs (Last 4 hours): Vital Signs Temp Pulse Resp BP Pulse Ox 12/09/16 18:30 98.2 F 90 25 H 132/82 100 12/09/16 18:15 20 144/84 98 12/09/16 18:00 97.5 F L 93 H 19 142/87 98 12/09/16 17:45 97.8 F 95 H 19 150/93 H 99 12/09/16 17:30 98.3 F 93 H 19 147/89 100 12/09/16 17:15 95 H 19 148/92 H 100 12/09/16 17:00 97.8 F 92 H 19 146/91 H 100 12/09/16 16:45 97.3 F L 89 19 141/94 H 100 12/09/16 16:30 97.6 F 91 H 17 140/92 H 100 12/09/16 16:15 97.1 F L 93 H 17 148/94 H 100 12/09/16 16:00 96.9 F L 89 17 139/101 H 100 Intake and Output (Last 8hrs): Intake & Output 12/09/16 12/09/16 12/09/16 06:59 14:59 22:59 Intake Total 1550 0 Balance 1550 0 Intake: IV 1550 0 - Physical Exam Head: Positive for: Atraumatic, Normocephalic Pupils: Positive for: PERRL Extroacular Muscles: Positive for: EOMI Conjunctiva: Positive for: Normal Mouth: Positive for: Moist Mucous Membranes Respiratory/Chest: Positive for: Clear to Auscultation, Good Air Exchange. Negative for: Respiratory Distress, Accessory Muscle Use Cardiovascular: Positive for: Regular Rate and Rhythm, Normal S1, S2, Peripheal Pulses Present. Negative for: Murmurs Abdomen: Positive for: Normal Bowel Sounds. Negative for: Tenderness, Distention Upper Extremity: Positive for: Normal Inspection, Capillary Refill < 2s. Negative for: Cyanosis, Edema Lower Extremity: Positive for: Normal Inspection, Capillary Refill < 2 s. Negative for: Edema, CALF TENDERNESS - Medications Active Medications: Active Medications Generic Name Dose Route Start Last Admin Trade Name Freq PRN Reason Stop Dose Admin Acetaminophen 650 mg 12/04/16 15:36 Tylenol 325mg Tab PO Q4 PRN Pain, moderate (4-7) Clonazepam 0.5 mg 12/05/16 09:00 12/09/16 08:28 Klonopin PO Not Given DAILY ERVIN Clonazepam 0.5 mg 12/04/16 22:00 12/08/16 21:56 Klonopin PO 0.5 mg HS ERVIN Administration Home Med 2 unit 12/05/16 22:00 12/08/16 23:10 Patient's Own Medication PO 2 unit HS ERVIN Administration Lactated Ringer's 1,000 mls @ 100 mls/hr 12/09/16 16:03 Lactated Ringer's IV .Q10H ERVIN Ketorolac Tromethamine 30 mg 12/04/16 15:37 Toradol IVP Q6 PRN Pain, severe (8-10) Lamotrigine 200 mg 12/04/16 17:00 12/09/16 05:15 Lamictal PO Not Given Q12H ERVIN Latanoprost 1 drop 12/04/16 22:00 12/08/16 21:56 Xalatan Opht OU 1 drop HS ERVIN Administration Polyethylene Glycol 17 gm 12/05/16 09:00 12/09/16 08:28 Miralax PO Not Given DAILY ERVIN Risperidone 1 mg 12/04/16 17:00 12/09/16 08:28 Risperdal Tab PO Not Given BID ERVIN - Patient Studies Fingerstick Blood Sugar Results: 109 Review of Systems - Review of Systems Systems not reviewed;Unavailable: Acuity of Condition Critical Care Progress Note - Nutrition Nutrition: Nutrition Category Date Time Status Heart Healthy Diet [DIET] Diets 12/10/16 Dinner Active NPO Diet [DIET] Diets 12/08/16 Dinner Active Assessment/Plan (1) Seizure disorder Current Visit: Yes Status: Acute Priority: Medium (2) Subluxation of C4-C5 cervical vertebrae Current Visit: Yes Status: Acute (3) Cervical spine fracture Current Visit: No Status: Acute - Assessment and Plan (Free Text) Assessment: Admit to SICU for hemodynamic monitoring and neuro check neuro check q 1h monitor Resp status for resp depression prn naloxone for RR<8 IV hydration Periop antibiotics pain control clear liquid diet, advance as tolerate bowel regimen PT/OT monitor urine output restart meds BD nebs q 6h prn ondansetron prn wound care
--- NOTE | 2016-12-09 19:22 | OP ---
PROCEDURE DATE: 12/09/2016 PREOPERATIVE DIAGNOSES: C4-C5 subluxation disk herniation, spinal cord compression. POSTOPERATIVE DIAGNOSES: C4 C5 subluxation disk herniation, spinal cord compression. PROCEDURE: C5 corpectomy, C4-C5, C5-C6 diskectomies; cord decompression, fibular strut fusion and fi xation C4-C6. SURGEON: Cole Novoa MD COSURGEON: Saeed Nguyen MD ANESTHESIA: General endotracheal. ESTIMATED BLOOD LOSS: 100 mL. COMPLICATIONS: None. JUSTIFICATION: The patient was admitted to the hospital with multiple falls. Has been having some d ysesthesias in his hands. Imaging workup with CT and an MRI showed a significant subluxation at C4-C 5. MRI documented disk herniation at that level with severe cord compression. The patient was recom mended to undergo operative decompression, fixation and fusion. The patient is cognitively impaired and the case was discussed with his legal guardian who agreed to proceed. DESCRIPTION OF PROCEDURE: The patient was brought to the operating room, hooked up to neurophysiolog ical monitoring. He was carefully intubated and anesthetized. Carranza-Wells tongs were placed. The patient was placed, specifically in a neutral position without any head extension. Baseline evoked potentials were obtained. Even though the patient has a seizure disorder, we decided to proceed with motor evoked potentials as it was felt that the risk of spinal cord injury outweighed the risk of se izures. The incision was localized with lateral fluoroscopy just left of the midline. The entire throat was scrubbed, painted and draped in the usual sterile fashion. An incision was opened approximately 4 cm in length just to the left of midline. The platysma was opened in the direction of its fibers. Sha rp and blunt dissection then carried forth in the plane between the sternocleidomastoid and the carot id laterally, the trachea and esophagus medially to encounter the anterior spine. This was cleared w [facility] [place] elevators. [place] were placed in the exposed disk spaces, which were confirmed fluorosco pically to be the correct 4-5 and 5-6 levels. At this point, the longus colli muscles were stripped laterally bilaterally. Self-retaining [place] t ype retracting system was placed. The anesthesiologist was asked to deflate the ET cuff. Each disk was then incised and grossly emptied of disk material with the use of pituitary rongeurs an d various curettes. The high speed drill was then used to begin the corpectomy actually drilling the lower 2 endplates and the lateral margins of the bone and then a rongeur was used to harvest the mid dle of the bone, which was later used for bone grafting. When there was a relatively thin shelf of r emaining cortical bone, the microscope was brought in. Under microscopic vision, we performed high speed drilling until a very thin layer of bone remained. We also removed some of the disk above and below with micro curettes and pituitary rongeurs. Ultimeugene rees we had a small window just above the ligament. I was able to tease a 1 mm Kerrison rongeur behi nd it and then started removing all material off the anterior dura first heading caudal towards the C 6 vertebra. When the decompression was adequate, we switched to a 2 mm and again removed, all remain ing bone, ligament and disk material off the anterior dura. A foraminotomy was performed laterally b ilaterally at this level. A blunt nerve hook was used to inspect each foramen, as well as behind the C6 vertebrae to confirm complete decompression. We then took the decompression cephalad again using 1 and 2 mm Kerrison rongeurs until we were able t o remove the 4-5 disk. There was actually a significant amount of free fragment markedly impacting t he cord that we carefully teased out. We again performed foraminotomies. We performed some decompre ssion behind the inferior body of 4 and a nerve hook again used to ensure adequate decompression. At this point, hemostasis was achieved. We measured the depth and the length of the interspace. We cut a fibular strut graft to the proper size, filled it with the harvested bone, some additional hydr oxy apatite collagen sponges, with some additional bone matrix proteins, all used to fill the fibula. We then asked the anesthesiologist to provide some additional traction on the [facility] w hile we tapped the graft into the interspace until it was well seated. This was confirmed visually a nd fluoroscopically. We then placed the appropriate sized DePuy Corona plate, 30 mm. Using contralateral fluoroscopy we drove 16 mm screws through the plate sequentially into C4 and C6, two screws each. Final x-ray confi rmed superb position of the entire construct. At this point, it was ensured that all 4 screws were tightened. We then locked the locking mechanism s over the screw heads. The retractors were withdrawn. The wound was copiously irrigated with antibiotic solution and some s mall bleeding points along the longus colli muscles were coagulated. The wound was observed for janette ral minutes to ensure that hemostasis was complete, which it was. We then further placed a layer of thrombinated powdered Gelfoam in the prevertebral space. The platysma was reapproximated using interrupted Vicryl, the subQ closed using interrupted inverted 3-0 Vicryl, the skin closed with a running 4-0 Monocryl suture, benzoin and Steri-Strips. A dressing and a [place] J collar were applied. The patient was aroused from anesthesia, extubated without difficulty and noted to be moving all [address] ex [address] well on his way to the recovery room. All counts were correct. Neurophysiological monitor ing including somatosensory and motor evoked potentials remained stable during the procedure. There were no complications. Cole Novoa MD cc: [id number] TT: 12/09/2016 19:21:38 lizzy
[2016-12-09] MEDS: ZONEGRAN 100 MG PO SCH (21:54)
[2016-12-09] MEDS: Latanoprost 0.005% Opht SOUTION OU SCH (21:55)
[2016-12-10 06:58] LABS: HEMATOCRIT 41.3 % (35.0-51.0); MEAN CELL VOLUME 87.9 fl (80.0-94.0); MEAN CORPUSCULAR HEMOGLOBIN 29.2 pg (27.0-31.0); MEAN CORPUSCULAR HGB CONC 33.3 g/dL (33.0-37.0); RED CELL DISTRIBUTION WIDTH 15.2 % (11.5-14.5); WHITE BLOOD COUNT 8.1 K/uL (4.8-10.8)
[2016-12-10 07:22] LABS: ALB/GLOB RATIO 1.4 (1.0-2.1); ALKALINE PHOSPHATASE 63 U/L (38-126); ALT/SGPT 30 U/L (21-72); AST/SGOT 27 U/L (17-59); BILIRUBIN,TOTAL 0.3 mg/dl (0.2-1.3); BLOOD UREA NITROGEN 15 mg/dl (9-20); CALCIUM 9.1 mg/dL (8.4-10.2); CARBON DIOXIDE 24 mmol/L (22-30); CHLORIDE 105 mmol/L (98-107); GFR AFRICAN-AMERICAN > 60; GLUCOSE,RANDOM 97 mg/dL (75-110); SODIUM 140 mmol/l (132-148); TOTAL PROTEIN 6.8 G/DL (6.3-8.2)
[2016-12-10] MEDS: POLYETHYLENE GLYCOL 3350 17 GM/Dose PACKET PO SCH (08:00)
[2016-12-10] MEDS ORDERED: Propofol 10 mg/ml Inj (20 ML) ONE (08:05)
--- NOTE | 2016-12-10 09:11 | CP.PCM.PN ---
Subjective - Date & Time of Evaluation Date of Evaluation: 12/09/16 Time of Evaluation: 10:30 - Subjective Subjective: Patient remains stable for surgery Labs reviewed. Objective - Vital Signs/Intake and Output Vital Signs (last 24 hours): Temp Pulse Resp BP Pulse Ox 98.9 F 86 21 149/88 95 12/10/16 08:00 12/10/16 08:00 12/10/16 08:00 12/10/16 08:00 12/10/16 08:00 Intake and Output: 12/10/16 12/10/16 06:59 18:59 Intake Total 1560 Output Total 1999 Balance -440 - Medications Medications: Current Medications Acetaminophen (Tylenol 325mg Tab) 650 mg PO Q4 PRN PRN Reason: Pain, moderate (4-7) Clonazepam (Klonopin) 0.5 mg PO DAILY [facility]S [facility] 234 BEDS AT [facility] Last Admin: 12/10/16 08:05 Dose: 0.5 mg Clonazepam (Klonopin) 0.5 mg PO [facility] Last Admin: 12/09/16 21:54 Dose: 0.5 mg Home Med (Patient's Own Medication) 2 unit PO [facility] Last Admin: 12/09/16 21:54 Dose: 2 unit Lactated Ringer's (Lactated Ringer's) 1,000 mls @ 100 mls/hr IV .Q10H COUNTS INCLUDE 234 BEDS AT THE [facility] Last Admin: 12/10/16 02:00 Dose: 100 mls/hr Ketorolac Tromethamine (Toradol) 30 mg IVP Q6 PRN PRN Reason: Pain, severe (8-10) Last Admin: 12/10/16 07:51 Dose: 30 mg Lamotrigine (Lamictal) 200 mg PO Q12H COUNTS [facility]CLUDE 234 BEDS AT THE [facility] Last Admin: 12/10/16 05:00 Dose: 200 mg Latanoprost (Xalatan Opht) 1 drop OU HS [facility]S [facility]CLUDE 234 BEDS AT THE [facility] Last Admin: 12/09/16 21:55 Dose: 1 drop Polyethylene Glycol (Miralax) 17 gm PO DAILY [facility]CLUDE 234 BEDS AT THE [facility] Last Admin: 12/10/16 08:00 Dose: 17 gm Risperidone (Risperdal Tab) 1 mg PO BID [facility]CLUDE 234 BEDS AT THE [facility] Last Admin: 12/10/16 08:01 Dose: 1 mg - Labs Labs: 12/10/16 06:47 12/10/16 06:47 PT 10.9 SECONDS (9.6-11.2) 12/06/16 08:00 INR 1.05 (0.92-1.08) 12/06/16 08:00 APTT 28.0 SECONDS (23.3-32.5) 12/06/16 08:00 - Head Exam Head Exam: NORMAL INSPECTION - Eye Exam Eye Exam: Normal appearance - ENT Exam ENT Exam: Mucous Membranes Moist - Respiratory Exam Respiratory Exam: Clear to Ausculation Bilateral - Cardiovascular Exam Cardiovascular Exam: REGULAR RHYTHM - Neurological Exam Neurological Exam: Altered, Awake Assessment and Plan (1) Subluxation of C4-C5 cervical vertebrae Status: Acute (2) Seizure disorder Status: Acute - Assessment and Plan (Free Text) Plan: medically stable for surgery cont tx.
--- NOTE | 2016-12-10 11:10 | CP.PCM.PN ---
Subjective - Date & Time of Evaluation Date of Evaluation: 12/10/16 Time of Evaluation: 11:08 - Subjective Subjective: evaluated with attending. no overnight event. tolerating PO. moving all extremities. denies pain Objective - Vital Signs/Intake and Output Vital Signs (last 24 hours): Temp Pulse Resp BP Pulse Ox 98.9 F 86 21 149/88 95 12/10/16 08:00 12/10/16 08:00 12/10/16 08:00 12/10/16 08:00 12/10/16 08:00 Intake and Output: 12/10/16 12/10/16 06:59 18:59 Intake Total 1560 Output Total 2000 Balance -440 - Medications Medications: Current Medications Acetaminophen (Tylenol 325mg Tab) 650 mg PO Q4 PRN PRN Reason: Pain, moderate (4-7) Clonazepam (Klonopin) 0.5 mg PO DAILY [facility] Last Admin: 12/10/16 08:05 Dose: 0.5 mg Clonazepam (Klonopin) 0.5 mg PO [facility] Last Admin: 12/09/16 21:54 Dose: 0.5 mg Home Med (Patient's Own Medication) 2 unit PO [facility] Last Admin: 12/09/16 21:54 Dose: 2 unit Lactated Ringer's (Lactated Ringer's) 1,000 mls @ 100 mls/hr IV .Q10H [facility] Last Admin: 12/10/16 02:00 Dose: 100 mls/hr Ketorolac Tromethamine (Toradol) 30 mg IVP Q6 PRN PRN Reason: Pain, severe (8-10) Last Admin: 12/10/16 07:51 Dose: 30 mg Lamotrigine (Lamictal) 200 mg PO Q12H [facility] Last Admin: 12/10/16 05:00 Dose: 200 mg Latanoprost (Xalatan Opht) 1 drop OU HS [facility] Last Admin: 12/09/16 21:55 Dose: 1 drop Polyethylene Glycol (Miralax) 17 gm PO DAILY [facility] Last Admin: 12/10/16 08:00 Dose: 17 gm Risperidone (Risperdal Tab) 1 mg PO BID [facility] Last Admin: 12/10/16 08:01 Dose: 1 mg - Labs Labs: 12/10/16 06:47 12/10/16 06:47 PT 10.9 SECONDS (9.6-11.2) 12/06/16 08:00 INR 1.05 (0.92-1.08) 12/06/16 08:00 APTT 28.0 SECONDS (23.3-32.5) 12/06/16 08:00 - Constitutional Appears: Non-toxic, No Acute Distress - Head Exam Head Exam: NORMAL INSPECTION - Eye Exam Eye Exam: Normal appearance - ENT Exam ENT Exam: Mucous Membranes Moist - Neck Exam Neck Exam: Normal Inspection Additional comments: brace in place - Respiratory Exam Respiratory Exam: Clear to Ausculation Bilateral - Cardiovascular Exam Cardiovascular Exam: REGULAR RHYTHM - GI/Abdominal Exam GI & Abdominal Exam: Soft - Extremities Exam Extremities Exam: Normal Inspection - Neurological Exam Neurological Exam: Alert, Oriented x3 Additional comments: motor/sensation grossly intact - Skin Skin Exam: Dry, Warm Assessment and Plan (1) Seizure disorder Status: Acute (2) Subluxation of C4-C5 cervical vertebrae Status: Acute (3) Mental retardation Status: Acute - Assessment and Plan (Free Text) Assessment: -neuro on board, appreciate input -NS on board, appreciate input -cardio on board, appreciate input -mental health program specialist on board, appreciate input -s/p POD#1 C5 corpectomy, C5-C6 diskectomies -c/w home meds -neuro/seizure precautions -pain control
--- NOTE | 2016-12-10 11:44 | CP.PCM.PN ---
Subjective - Date & Time of Evaluation Date of Evaluation: 12/10/16 Time of Evaluation: 11:42 - Subjective Subjective: SPINE - POD #1 Pt resting in bed in ICU. No problems post-op thus far. Pt able to take po. States his arms feel better than pre-op. Wants to get OOB. VSS. Afebrile. Collar in place. Moves all extremities actively. Neuro grossly intact. Plan: Mobilize as tolerated. PT/OT ordered. OK to transfer to med/surg floor from our viewpoint. Objective - Vital Signs/Intake and Output Vital Signs (last 24 hours): Temp Pulse Resp BP Pulse Ox 98.9 F 86 21 149/88 95 12/10/16 08:00 12/10/16 08:00 12/10/16 08:00 12/10/16 08:00 12/10/16 08:00 Intake and Output: 12/10/16 12/10/16 06:59 18:59 Intake Total 1560 Output Total 2000 Balance -440 - Medications Medications: Current Medications Acetaminophen (Tylenol 325mg Tab) 650 mg PO Q4 PRN PRN Reason: Pain, moderate (4-7) Last Admin: 12/10/16 11:17 Dose: 650 mg Clonazepam (Klonopin) 0.5 mg PO DAILY [facility] Last Admin: 12/10/16 08:05 Dose: 0.5 mg Clonazepam (Klonopin) 0.5 mg PO [facility] Last Admin: 12/09/16 21:54 Dose: 0.5 mg Home Med (Patient's Own Medication) 2 unit PO [facility] Last Admin: 12/09/16 21:54 Dose: 2 unit Lactated Ringer's (Lactated Ringer's) 1,000 mls @ 100 mls/hr IV .Q10H [facility] Last Admin: 12/10/16 02:00 Dose: 100 mls/hr Ketorolac Tromethamine (Toradol) 30 mg IVP Q6 PRN PRN Reason: Pain, severe (8-10) Last Admin: 12/10/16 07:51 Dose: 30 mg Lamotrigine (Lamictal) 200 mg PO Q12H [facility] Last Admin: 12/10/16 05:00 Dose: 200 mg Latanoprost (Xalatan Opht) 1 drop OU [facility] Last Admin: 12/09/16 21:55 Dose: 1 drop Polyethylene Glycol (Miralax) 17 gm PO DAILY [facility] Last Admin: 12/10/16 08:00 Dose: 17 gm Risperidone (Risperdal Tab) 1 mg PO BID [facility] Last Admin: 12/10/16 08:01 Dose: 1 mg - Labs Labs: 12/10/16 06:47 12/10/16 06:47 PT 10.9 SECONDS (9.6-11.2) 12/06/16 08:00 INR 1.05 (0.92-1.08) 12/06/16 08:00 APTT 28.0 SECONDS (23.3-32.5) 12/06/16 08:00
--- NOTE | 2016-12-10 16:55 | RAD ---
PROCEDURE: Fluoroscopy up to 1 hr. HISTORY: Fluoroscopy COMPARISON: None TECHNIQUE: Standard FINDINGS: Submitted images from the current procedure: 5.0 IMPRESSION: Less than 1 hr fluoroscopic time utilized during performance of the procedure.
--- NOTE | 2016-12-10 17:07 | PN ---
DATE: 12/10/2016 SUBJECTIVE: The patient underwent C5 corpectomy and C4 - C6 fixation and fusion. The patient denies any chest pain. No reported ventricular arrhythmia, ____, in a chair. PHYSICAL EXAMINATION: VITAL SIGNS: Blood pressure 126/66, heart rate 91, temperature 98.4, respirations 20. HEENT: Normocephalic. NECK: No JVD. CHEST: Clear. HEART: S1, S2 regular. EXTREMITIES: No edema. LABORATORIES: CBC: WBC 8.1, hemoglobin 13.8, hematocrit 41.3, platelet count 205,000. Today's SMA- 7 is entirely within normal limit. ASSESSMENT: 1. Status post C5 corpectomy, C4-C5 and C5-C6 diskectomies, cord decompression and fibular strut fus ion and fixation of C4-C6. 2. History of seizure disorder and multiple falls. RECOMMENDATIONS: Continue current ICU monitoring. Continue current Klonopin and p.r.n. IV Toradol. Obtain 12-lead EKG postoperatively. Ronnie Lazar MD cc: [id number] TT: 12/10/2016 17:07:08 Confirmation # [id number] Dictation # [id number]
[2016-12-10] MEDS: ZONEGRAN 100 MG PO SCH (22:00)
[2016-12-10] MEDS: Latanoprost 0.005% Opht SOUTION OU SCH (22:55)
[2016-12-11 08:29] VITALS: O2SAT 96
--- NOTE | 2016-12-11 08:37 | CARD ---
APPROVED REPORT EKG Measurement Heart [id number] <Conclusion> Normal sinus rhythm Possible Left atrial enlargement Borderline ECG
[2016-12-11] MEDS: POLYETHYLENE GLYCOL 3350 17 GM/Dose PACKET PO SCH (09:11)
--- NOTE | 2016-12-11 13:33 | CP.PCM.PN ---
Subjective - Date & Time of Evaluation Date of Evaluation: 12/11/16 Time of Evaluation: 10:31 - Subjective Subjective: Patient seen and examined at bedside. No acute events overnight. Patient states feels improvement but still has pain of surgical site though controlled with medications. Denies fever, chills, abdominal pain, headache, chest pain, or numbness/tingling/weakness of extremities. Objective - Vital Signs/Intake and Output Vital Signs (last 24 hours): Temp Pulse Resp BP Pulse Ox 99.5 F 93 H 20 136/81 96 12/11/16 08:28 12/11/16 08:28 12/11/16 08:28 12/11/16 08:28 12/11/16 08:28 - Medications Medications: Current Medications Acetaminophen (Tylenol 325mg Tab) 650 mg PO Q4 PRN PRN Reason: Pain, moderate (4-7) Last Admin: 12/10/16 16:20 Dose: 650 mg Clonazepam (Klonopin) 0.5 mg PO DAILY [facility] Last Admin: 12/11/16 09:16 Dose: 0.5 mg Clonazepam (Klonopin) 0.5 mg PO [facility] Last Admin: 12/10/16 22:01 Dose: 0.5 mg Home Med (Patient's Own Medication) 2 unit PO [facility] Last Admin: 12/10/16 22:00 Dose: 2 unit Lactated Ringer's (Lactated Ringer's) 1,000 mls @ 100 mls/hr IV .Q10H [facility] Last Admin: 12/10/16 02:00 Dose: 100 mls/hr Ketorolac Tromethamine (Toradol) 30 mg IVP Q6 PRN PRN Reason: Pain, severe (8-10) Last Admin: 12/11/16 09:17 Dose: 30 mg Lamotrigine (Lamictal) 200 mg PO Q12H [facility] Last Admin: 12/11/16 05:29 Dose: 200 mg Latanoprost (Xalatan Opht) 1 drop OU HS [facility] Last Admin: 12/10/16 22:55 Dose: 1 drop Polyethylene Glycol (Miralax) 17 gm PO DAILY [facility] Last Admin: 12/11/16 09:11 Dose: 17 gm Risperidone (Risperdal Tab) 1 mg PO BID [facility] Last Admin: 12/11/16 09:12 Dose: 1 mg - Labs Labs: 12/10/16 06:47 12/10/16 06:47 PT 10.9 SECONDS (9.6-11.2) 12/06/16 08:00 INR 1.05 (0.92-1.08) 12/06/16 08:00 APTT 28.0 SECONDS (23.3-32.5) 12/06/16 08:00 - Constitutional Appears: Well, Non-toxic, No Acute Distress - Head Exam Head Exam: ATRAUMATIC, NORMAL INSPECTION, NORMOCEPHALIC - Eye Exam Eye Exam: Normal appearance - Neck Exam Additional comments: brace in place, wound dressing CDI, no drainage noted. - Respiratory Exam Respiratory Exam: Clear to Ausculation Bilateral, NORMAL BREATHING PATTERN - Cardiovascular Exam Cardiovascular Exam: REGULAR RHYTHM, +S1, +S2. absent: Murmur - GI/Abdominal Exam GI & Abdominal Exam: Soft, Normal Bowel Sounds. absent: Tenderness - Extremities Exam Extremities Exam: Normal Inspection - Neurological Exam Neurological Exam: Alert, Awake Additional comments: motor/sensation grossly intact - Psychiatric Exam Psychiatric exam: Normal Affect, Normal Mood - Skin Skin Exam: Dry, Intact, Normal Color, Warm Assessment and Plan (1) Subluxation of C4-C5 cervical vertebrae Assessment & Plan: Neurosurgery on board, appreciate input s/p decompression fixation fusion POD #2 Pain control PRN Will need safe discharge planning as patient lives in [facility]. [place] should be a consideration Status: Acute (2) Mental retardation Status: Acute (3) Seizure disorder Assessment & Plan: Neurology on board, appreciate input c/w meds as per recommendation Status: Acute - Assessment and Plan (Free Text) Assessment: 56 yo M s/p decompression fixation and fusion of C4 C5 suluxation/cord compression POD #2. Progressing post-operatively well.
--- NOTE | 2016-12-11 14:10 | PN ---
DATE: 12/11/2016 SUBJECTIVE: The patient denies chest pain or shortness of breath. He is currently transferred to [facility] floor. PHYSICAL EXAMINATION: VITAL SIGNS: Blood pressure 136/81, heart rate 93, temperature 99.5, respirations 20. HEENT: Normocephalic. CHEST: Clear. HEART: S1, S2 regular. EXTREMITIES: No edema. LABORATORIES: No lab results are posted for today. Yesterday's CBC and SMA-7 were practically withi n normal limits. Yesterday's EKG revealed normal sinus rhythm at rate of 93, possible left atrial en largement. ASSESSMENT: 1. Status post C5 corpectomy, C4-C5 and C5-C6 diskectomies, cord decompression and fibular strut fus ion and fixation of C5-C6. 2. History of multiple falls and seizure disorder. RECOMMENDATIONS: Continue Klonopin, Lamictal, Risperdal. No further cardiac workup is indicated. Ronnie Lazar MD cc: [id number] TT: 12/11/2016 14:09:43 Confirmation # [id number] Dictation # [id number]
[2016-12-11] MEDS: ZONEGRAN 100 MG PO SCH (22:02)
[2016-12-11] MEDS: Latanoprost 0.005% Opht SOUTION OU SCH (22:09)
[2016-12-12 00:27] VITALS: RESP 20
[2016-12-12] MEDS: POLYETHYLENE GLYCOL 3350 17 GM/Dose PACKET PO SCH (09:32)
--- NOTE | 2016-12-12 12:04 | CP.PCM.PCO ---
Assessment and Plan - Assessment and Plan (Free Text) Assessment: a/p 56 yr old M s/p c6 fixation fusion corpectomy w/ hx seizures Assessment & Plan - Assessment and Plan (Free Text) Plan: a/p 56 yr old M with pmhx seizures, s/p corpectomy As per , zonisamide may be increased to 200 mg QHS, Discontinue previous dose of 100mg QHS and start 200 mg po qhs
--- NOTE | 2016-12-12 12:34 | CP.PCM.PN ---
Subjective - Date & Time of Evaluation Date of Evaluation: 12/12/16 Time of Evaluation: 12:32 - Subjective Subjective: POD 3 doing well c/o cough some dif swallowing eating well fitting MJ collar dsg C and D holbrook well clear for dc from our standpoint suggest trans to rehab Objective - Vital Signs/Intake and Output Vital Signs (last 24 hours): Temp Pulse Resp BP Pulse Ox 97.6 F 91 H 20 132/84 96 12/12/16 07:35 12/12/16 07:35 12/12/16 07:35 12/12/16 07:35 12/12/16 07:35 - Medications Medications: Current Medications Acetaminophen (Tylenol 325mg Tab) 650 mg PO Q4 PRN PRN Reason: Pain, moderate (4-7) Last Admin: 12/10/16 16:20 Dose: 650 mg Clonazepam (Klonopin) 0.5 mg PO DAILY [facility] Last Admin: 12/12/16 09:36 Dose: 0.5 mg Clonazepam (Klonopin) 0.5 mg PO HS [facility] Last Admin: 12/11/16 22:04 Dose: 0.5 mg Home Med (Patient's Own Medication) 2 unit PO HS [facility] Last Admin: 12/11/16 22:02 Dose: 2 unit Ketorolac Tromethamine (Toradol) 30 mg IVP Q6 PRN PRN Reason: Pain, severe (8-10) Last Admin: 12/12/16 09:36 Dose: 30 mg Lamotrigine (Lamictal) 200 mg PO Q12H [facility] Last Admin: 12/12/16 05:34 Dose: 200 mg Latanoprost (Xalatan Opht) 1 drop OU HS [facility] Last Admin: 12/11/16 22:09 Dose: 1 drop Polyethylene Glycol (Miralax) 17 gm PO DAILY [facility] Last Admin: 12/12/16 09:32 Dose: 17 gm Risperidone (Risperdal Tab) 1 mg PO BID [facility] Last Admin: 12/12/16 09:33 Dose: 1 mg - Labs Labs: 12/10/16 06:47 12/10/16 06:47 PT 10.9 SECONDS (9.6-11.2) 12/06/16 08:00 INR 1.05 (0.92-1.08) 12/06/16 08:00 APTT 28.0 SECONDS (23.3-32.5) 12/06/16 08:00
--- NOTE | 2016-12-12 14:14 | CP.PCM.PN ---
Subjective - Date & Time of Evaluation Date of Evaluation: 12/12/16 Time of Evaluation: 11:06 Objective - Vital Signs/Intake and Output Vital Signs (last 24 hours): Temp Pulse Resp BP Pulse Ox 97.6 F 91 H 20 132/84 96 12/12/16 07:35 12/12/16 07:35 12/12/16 07:35 12/12/16 07:35 12/12/16 07:35 - Medications Medications: Current Medications Acetaminophen (Tylenol 325mg Tab) 650 mg PO Q4 PRN PRN Reason: Pain, moderate (4-7) Last Admin: 12/10/16 16:20 Dose: 650 mg Clonazepam (Klonopin) 0.5 mg PO DAILY [facility] Last Admin: 12/12/16 09:36 Dose: 0.5 mg Clonazepam (Klonopin) 0.5 mg PO HS [facility] Last Admin: 12/11/16 22:04 Dose: 0.5 mg Home Med (Patient's Own Medication) 2 unit PO HS [facility] Last Admin: 12/11/16 22:02 Dose: 2 unit Ketorolac Tromethamine (Toradol) 30 mg IVP Q6 PRN PRN Reason: Pain, severe (8-10) Last Admin: 12/12/16 09:36 Dose: 30 mg Lamotrigine (Lamictal) 200 mg PO Q12H [facility] Last Admin: 12/12/16 05:34 Dose: 200 mg Latanoprost (Xalatan Opht) 1 drop OU HS [facility] Last Admin: 12/11/16 22:09 Dose: 1 drop Polyethylene Glycol (Miralax) 17 gm PO DAILY [facility] Last Admin: 12/12/16 09:32 Dose: 17 gm Risperidone (Risperdal Tab) 1 mg PO BID [facility] Last Admin: 12/12/16 09:33 Dose: 1 mg - Labs Labs: 12/10/16 06:47 12/10/16 06:47 PT 10.9 SECONDS (9.6-11.2) 12/06/16 08:00 INR 1.05 (0.92-1.08) 12/06/16 08:00 APTT 28.0 SECONDS (23.3-32.5) 12/06/16 08:00 Assessment and Plan (1) Subluxation of C4-C5 cervical vertebrae Status: Acute (2) Mental retardation Status: Acute (3) Seizure disorder Status: Acute
--- NOTE | 2016-12-12 14:17 | PN ---
DATE: 12/12/2016 The patient denies any chest pain or shortness of breath. No complaint was reported to me by the [facility]. PHYSICAL EXAMINATION: VITAL SIGNS: Blood pressure 132/85, heart rate 91, temperature 97.6, respiration 20. HEENT: Normocephalic. CHEST: Clear. HEART: S1, S2 regular. EXTREMITIES: No edema. ASSESSMENT: 1. Status post C5 corpectomy, C4-C5 and C5-C6 diskectomy and decompression and fibular strut fusion and fixation to C4, C6. 2. History of seizures and multiple falls. 3. Mental retardation. RECOMMENDATIONS: Continue current Klonopin, Lamictal, Toradol intravenously p.r.n. for pain. Ronnie Lazar MD cc: [id number] TT: 12/12/2016 14:17:04 Confirmation # [id number] Dictation # [id number]
[2016-12-12 16:05] VITALS: BP 131/78; PULSE 85; TEMP 97
--- NOTE | 2016-12-12 17:42 | CP.PCM.DIS ---
Provider - Provider Date of Admission: 12/04/16 14:50 Attending physician: Lucien Hobbs MD Time Spent in preparation of Discharge (in minutes): 30 Diagnosis - Discharge Diagnosis (1) Subluxation of C4-C5 cervical vertebrae Status: Acute (2) Mental retardation Status: Acute (3) Seizure disorder Status: Acute Priority: Medium Hospital Course - Lab Results Lab Results: Micro Results 12/10/16 07:52 Nose MRSA Culture (Admit) - Final MRSA NOT DETECTED 12/09/16 04:00 Nose MRSA Culture (Admit) - Final MRSA NOT DETECTED Most Recent Lab Values WBC 8.1 K/uL (4.8-10.8) D 12/10/16 06:47 RBC 4.70 Mil/uL (4.40-5.90) 12/10/16 06:47 Hgb 13.8 g/dL (12.0-18.0) 12/10/16 06:47 Hct 41.3 % (35.0-51.0) 12/10/16 06:47 MCV 87.9 fl (80.0-94.0) 12/10/16 06:47 MCH 29.2 pg (27.0-31.0) 12/10/16 06:47 MCHC 33.3 g/dL (33.0-37.0) 12/10/16 06:47 RDW 15.2 % (11.5-14.5) H 12/10/16 06:47 Plt Count 205 K/uL (130-400) 12/10/16 06:47 MPV 9.2 fl (7.2-11.7) 12/04/16 15:39 Neut % (Auto) 44.0 % (50.0-75.0) L 12/04/16 15:39 Lymph % (Auto) 41.2 % (20.0-40.0) H 12/04/16 15:39 Arroyo % (Auto) 9.2 % (0.0-10.0) 12/04/16 15:39 Eos % (Auto) 4.9 % (0.0-4.0) H 12/04/16 15:39 Baso % (Auto) 0.7 % (0.0-2.0) 12/04/16 15:39 Neut # 2.2 K/uL (1.8-7.0) 12/04/16 15:39 Lymph # 2.1 K/uL (1.0-4.3) 12/04/16 15:39 Arroyo # 0.5 K/uL (0.0-0.8) 12/04/16 15:39 Eos # 0.2 K/uL (0.0-0.7) 12/04/16 15:39 Baso # 0.0 K/uL (0.0-0.2) 12/04/16 15:39 PT 10.9 SECONDS (9.6-11.2) 12/06/16 08:00 INR 1.05 (0.92-1.08) 12/06/16 08:00 APTT 28.0 SECONDS (23.3-32.5) 12/06/16 08:00 Sodium 140 mmol/l (132-148) 12/10/16 06:47 Potassium 4.0 MMOL/L (3.6-5.0) 12/10/16 06:47 Chloride 105 mmol/L (98-107) 12/10/16 06:47 Carbon Dioxide 24 mmol/L (22-30) 12/10/16 06:47 Anion Gap 15 (10-20) 12/10/16 06:47 BUN 15 mg/dl (9-20) 12/10/16 06:47 Creatinine 1.0 mg/dL (0.8-1.5) 12/10/16 06:47 Est GFR ( Amer) > 60 12/10/16 06:47 Est GFR (Non-Af Amer) > 60 12/10/16 06:47 POC Glucose (mg/dL) 92 mg/dL (65-110) 12/10/16 06:40 Random Glucose 97 mg/dL (75-110) 12/10/16 06:47 Calcium 9.1 mg/dL (8.4-10.2) 12/10/16 06:47 Total Bilirubin 0.3 mg/dl (0.2-1.3) 12/10/16 06:47 AST 27 U/L (17-59) 12/10/16 06:47 ALT 30 U/L (21-72) 12/10/16 06:47 Alkaline Phosphatase 63 U/L (38-126) 12/10/16 06:47 Total Protein 6.8 G/DL (6.3-8.2) 12/10/16 06:47 Albumin 3.9 g/dL (3.5-5.0) 12/10/16 06:47 Globulin 2.9 gm/dL (2.2-3.9) 12/10/16 06:47 Albumin/Globulin Ratio 1.4 (1.0-2.1) 12/10/16 06:47 Blood Type B POSITIVE 12/07/16 10:45 Blood Type Confirm B POSITIVE 12/04/16 21:00 Antibody Screen Negative 12/07/16 10:45 BBK History Checked Patient has bt 12/07/16 10:45 - Hospital Course Hospital Course: 56yo M with PMHx mental retardation and seizure admitted for cervical anterior subluxation C4 over C5. sustained injury after fall to the head. s/p decompression fixation and fusion on 12/10. Progressed through post op period well. Patient was seen by neurosurgery and neurology. Patient will need further rehab at [facility]. Discharge Exam - Head Exam Head Exam: ATRAUMATIC, NORMAL INSPECTION, NORMOCEPHALIC - Eye Exam Eye Exam: Normal appearance - Neck Exam Additional comments: in c-collar, with dressing cdi - Respiratory Exam Respiratory Exam: Clear to PA & Lateral, NORMAL BREATHING PATTERN, UNREMARKABLE - Cardiovascular Exam Cardiovascular Exam: REGULAR RHYTHM - GI/Abdominal Exam GI & Abdominal Exam: Normal Bowel Sounds, Soft. absent: Tenderness - Extremities Exam Extremities exam: normal inspection - Back Exam Back exam: NORMAL INSPECTION - Neurological Exam Neurological exam: Alert - Psychiatric Exam Psychiatric exam: Normal Affect, Normal Mood - Skin Skin Exam: Dry, Intact, Normal Color, Warm Discharge Plan - Discharge Medications Prescriptions: Zonisamide [Zonegran] 200 mg PO HS #14 capsule - Follow Up Plan Condition: GUARDED Disposition: REHAB FACILITY/REHAB UNIT Instructions: Corpectomy (DC) Additional Instructions: patient cleared for discharge to [facility] by Dr. Gomez and dr. hobbs Referrals: Lucien Hobbs MD [Staff Provider] - Cole Novoa MD [Staff Provider] -
== END 2016-12-12 17:00 | DRG 864 ==
LOC: H.ER 09:23 → H.ERHOLD 14:50 → H.MEDSURG1 17:13 → H.ICU/CCU 12-09 18:19 → H.MEDSURG1 12-10 18:31
PROVIDERS: ADMIT Family Medicine; ATTEND Family Medicine
PROC: 0RT30ZZ Resection of Cervical Vertebral Disc, Open Approach (ICD-10-PCS; 2016-12-09)
PROC: 01N10ZZ Release Cervical Nerve, Open Approach (ICD-10-PCS; 2016-12-09)
PROC: 0RG20Z1 (ICD-10-PCS; principal; 2016-12-09 11:00)
DX: S13.150A Subluxation of C4/C5 cervical vertebrae, initial encounter (principal); M50.021 Cervical disc disorder at C4-C5 level with myelopathy; F31.9 Bipolar disorder, unspecified; M50.221 Other cervical disc displacement at C4-C5 level; G40.909 Epilepsy, unspecified, not intractable, without status epilepticus; F71 Moderate intellectual disabilities; I25.10 Atherosclerotic heart disease of native coronary artery without angina pectoris; W18.30XA Fall on same level, unspecified, initial encounter; F41.9 Anxiety disorder, unspecified; R29.6 Repeated falls; Z91.81 History of falling; Z79.82 Long term (current) use of aspirin; Z87.820 Personal history of traumatic brain injury; Y92.89 Other specified places as the place of occurrence of the external cause

== ENCOUNTER 2017-01-07 17:55 | Emergency (ER) | payer OTHER ==
[2017-01-07 18:09] VITALS: BP 142/87; PULSE 86; RESP 18; TEMP 97.8; O2SAT 98
[2017-01-07] MEDS ORDERED: Lidocaine 2% w Epi 1:100,000 Inj IJ ONE (18:14)
[2017-01-07] MEDS ORDERED: Lidocaine/Epi 1% 1:100000 20 ML IJ STA (18:34)
--- NOTE | 2017-01-07 19:42 | CT ---
EXAM: CT Head Without Intravenous Contrast CLINICAL HISTORY: 56 years old, male; Injury or trauma; Fall; Initial encounter; Concussion / head injury; Consciousness not specified; Additional info: Fall with lac to eyebrow TECHNIQUE: Axial computed tomography images of the head/brain without intravenous contrast. This CT exam was performed using one or more of the following dose reduction techniques: automated exposure control, adjustment of the mA and/or kV according to patient size, and/or use of iterative reconstruction technique. Coronal and sagittal reformatted images were created and reviewed. EXAM DATE/TIME: 01/07/2017 6:32 PM COMPARISON: CT - HEAD W/O CONTRAST 12/04/2016 10:03:22 AM FINDINGS: Brain: Ventricles are normal in size and configuration. There is no midline shift. There are no intra-axial or extra-axial mass lesions or areas of hemorrhage. There are no abnormal fluid collections. Jules-white differentiation is maintained. Ventricles: See above. Bones: Cranial vault is intact. Soft tissues: There is right frontal scalp swelling and bruising. There is laceration with soft tissue emphysema. Sinuses: There is a retention cyst/polyp in the right maxillary sinus. There is small air-fluid level in the left maxillary sinus. There is opacification of occasional ethmoid air cells. Orbits: There are no acute orbital abnormalities. Globes are intact. Right lens is absent. Ears and mastoids: Middle ears and mastoids are unremarkable IMPRESSION: Right frontal scalp hematoma and laceration, no acute intracranial abnormality Additional findings as described above.
--- NOTE | 2017-01-07 19:50 | ED PDOC ---
HPI: Trauma/Fall - HPI Time Seen by Provider: 01/07/17 18:10 Chief Complaint (Nursing): Altered Mental Status History Per: Patient, Other (alf staff who accompanies him when he goes out states that he tripped on his walker while he was at the local [employer]. He fell and hit his head. The staff, Jazz, denies noticing him passing out before or after the fall. ) Past Medical History Reviewed: Historical Data, Nursing Documentation, Vital Signs Vital Signs: Last Vital Signs Temp 97.8 F 01/07/17 18:06 Pulse 86 01/07/17 18:06 Resp 18 01/07/17 18:06 BP 142/87 01/07/17 18:06 Pulse Ox 98 01/07/17 20:05 - Medical History PMH: Anxiety, Back Problems, Bipolar Disorder, CAD, Personality Disorder, Seizures Denies: Chronic Kidney Disease - Family History Family History: States: Unknown Family Hx - Immunization History Hx Tetanus Toxoid Vaccination: No (unknown) - Home Medications Home Medications: Ambulatory Orders Medication Instructions Recorded Aspirin [Ecotrin] 81 mg PO DAILY 12/04/16 Calcium Carbonate/Vitamin D3 1 tab PO BID 12/04/16 [Oyster Shell Calcium Tablet] Cholecalciferol (Vitamin D3) 2,000 unit PO DAILY 12/04/16 [Vitamin D3] Clonazepam [Klonopin] 0.5 mg PO DAILY 12/04/16 Clonazepam [Klonopin] 0.5 mg PO HS 12/04/16 Lamotrigine [Lamictal] 200 mg PO Q12 12/04/16 Latanoprost 0.005% Opht [Xalatan 1 drop BOTHEYES HS 12/04/16 Opht] Polyethylene Glycol 3350 [Miralax] 17 gm PO DAILY 12/04/16 risperiDONE [RisperDAL Tab] 1 mg PO BID 12/04/16 Acetaminophen [Tylenol 325mg tab] 650 mg PO Q4 PRN tab 12/12/16 Zonisamide [Zonegran] 200 mg PO HS #14 capsule 12/12/16 - Allergies Allergies/Adverse Reactions: Allergies Allergy/AdvReac Type Severity Reaction Status Date / Time No Known Allergies Allergy Verified 11/05/16 19:58 Review of Systems Review Of Systems: ROS cannot be obtained secondary to pt's inabilty to answer questions. Physical Exam - Reviewed Nursing Documentation Reviewed: Yes Vital Signs Reviewed: Yes - Physical Exam Appears: Positive for: Well Head Exam: Positive for: NORMOCEPHALIC Skin: Positive for: Normal Color (4cm laceration on top of the right eyebrow. bleeding is controlled. ) Eye Exam: Positive for: Normal appearance ENT: Positive for: Normal ENT Inspection Neck: Positive for: Normal Cardiovascular/Chest: Positive for: Regular Rate, Rhythm Respiratory: Positive for: Normal Breath Sounds Gastrointestinal/Abdominal: Positive for: Normal Exam Back: Positive for: Normal Inspection - ECG O2 Sat by Pulse Oximetry: 98 Procedures - Laceration/Wound Repair Eye Wound Length (cm): 4 Wound's Depth, Shape: into muscle, linear Wound Explored: clean Irrigated w/ Saline (ccs): 60 Betadine Prep?: No (Chlorhexidine) Anesthesia: Lidocaine w/ Epi Volume Anesthetic (ccs): 5 Wound Debrided: minimal Wound Repaired With: Sutures Suture Size/Type: 3:0, proline Number of Sutures: 6 Layer Closure?: No Wound Complexity: Simple Sterile Dressing Applied?: Yes Splint Applied?: No Disposition - Clinical Impression Clinical Impression: Eyebrow laceration - Patient ED Disposition Is Patient to be Admitted: No Doctor Will See Patient In The: Office Counseled Patient/Family Regarding: Diagnosis, Need For Followup - Disposition Referrals: Omar Villa MD [Primary Care Provider] - Disposition: Routine/Home Disposition Time: 19:57 Condition: IMPROVED Instructions: Care For Your Stitches (ED), Laceration (ED) Forms: [employer] (Czech) - POA Present On Arrival: Falls Or Trauma
--- NOTE | 2017-01-07 19:52 | CT ---
EXAM: CT Cervical Spine Without Intravenous Contrast CLINICAL HISTORY: 56 years old, male; Injury or trauma; Fall; Initial encounter; Blunt trauma; Prior surgery; Surgery type: ? ? ? ; Additional info: Fall with head injury. TECHNIQUE: Axial computed tomography images of the cervical spine without intravenous contrast. This CT exam was performed using one or more of the following dose reduction techniques: automated exposure control, adjustment of the mA and/or kV according to patient size, and/or use of iterative reconstruction technique. Coronal and sagittal reformatted images were created and reviewed. EXAM DATE/TIME: 01/07/2017 6:34 PM COMPARISON: CT - CERVICAL SPINE W/O CONTRAST 12/04/2016 10:06:38 AM FINDINGS: Vertebrae: There is straightening of the cervical lordosis. There is no prevertebral soft tissue swelling. There are no acute fractures. There are degenerative changes at multiple levels. There is narrowing of the predental space. There is disc space narrowing C2-3, unchanged. There is increased disc space narrowing C3-4 with endplate irregularity C3 and C4. There is been interval anterior fusion C4/C5/C6. There has been partial resection of the C5 vertebral body. There is an old healed right C5 lamina fracture, unchanged. A metallic cage projects C4-C6. There is disc space narrowing C5-6, unchanged. There is slight worsening disc disease C6-7 and C7-T1. There are degenerative osteophytes at multiple levels. Facet joint perching C5-6 has decreased. Remaining facet joints align anatomically. Discs/spinal canal/neural foramina: See above. Soft tissues: See above. Thyroid: Thyroid is not optimally demonstrated. Lung apices: Lung apices are clear IMPRESSION: Interval fusion C4/C5/C6, degenerative change, no acute fracture seen
== END 2017-01-07 20:40 | disposition home or self-care (01) ==
LOC: H.ER 17:55
DX: S01.81XA Laceration without foreign body of other part of head, initial encounter (principal); S09.90XA Unspecified injury of head, initial encounter; W19.XXXA Unspecified fall, initial encounter; Y92.512 Supermarket, store or market as the place of occurrence of the external cause; F31.9 Bipolar disorder, unspecified; F41.9 Anxiety disorder, unspecified; I25.10 Atherosclerotic heart disease of native coronary artery without angina pectoris; M50.321 Other cervical disc degeneration at C4-C5 level; M50.322 Other cervical disc degeneration at C5-C6 level; M50.323 Other cervical disc degeneration at C6-C7 level; Z79.82 Long term (current) use of aspirin

== ENCOUNTER 2017-03-09 16:09 | Emergency (ER) | payer OTHER ==
[2017-03-09 16:19] VITALS: BP 143/88; PULSE 87; RESP 22; TEMP 97.5; O2SAT 97
[2017-03-09 17:07] LABS: BASO % 0.4 % (0.0-2.0); EOS # 0.2 K/uL (0.0-0.7); EOS % 3.7 % (0.0-4.0); HEMATOCRIT 43.9 % (35.0-51.0); LYMPH % 37.8 % (20.0-40.0); MEAN CELL VOLUME 87.1 fl (80.0-94.0); MEAN CORPUSCULAR HEMOGLOBIN 28.8 pg (27.0-31.0); MEAN CORPUSCULAR HGB CONC 33.1 g/dL (33.0-37.0); MEAN PLATELET VOLUME 8.4 fl (7.2-11.7); MONO # 0.5 K/uL (0.0-0.8); MONO % 9.5 % (0.0-10.0); NEUT # 2.5 K/uL (1.8-7.0); NEUT % 48.6 % (50.0-75.0); RED CELL DISTRIBUTION WIDTH 15.2 % (11.5-14.5); WHITE BLOOD COUNT 5.2 K/uL (4.8-10.8)
[2017-03-09 17:12] LABS: BLOOD UREA NITROGEN 13 mg/dl (9-20); CALCIUM 9.5 mg/dL (8.4-10.2); CARBON DIOXIDE 21 mmol/L (22-30); CHLORIDE 107 mmol/L (98-107); GFR AFRICAN-AMERICAN > 60; GLUCOSE,RANDOM 99 mg/dL (75-110); POTASSIUM 4.2 MMOL/L (3.6-5.0); SODIUM 139 mmol/l (132-148)
--- NOTE | 2017-03-09 17:36 | ED PDOC ---
HPI: Back Time Seen by Provider: 03/09/17 16:22 Chief Complaint (Nursing): Back Pain Chief Complaint (Provider): Back pain History Per: Patient History/Exam Limitations: no limitations Onset/Duration Of Symptoms: Days (10) Current Symptoms Are (Timing): Still Present Quality Of Discomfort: "Pain" Associated Symptoms: None Additional Complaint(s): The patient is a 57yo male, with past medical history of anxiety, bipolar disorder, personality disorder, and seizures, presents to the ED accompanied by counselors from his [facility], for evaluation of right sided flank and back pain, present for the past 10 days. Patient reports the pain at times is worse with movement and that he has had no relief with pain medications. Of note, patient reports in November 2016, he had surgery on C5 in his c-spine. Patient denies any numbness, tingling, weakness, new neck pain, fever, chills, injuries or falls. Patient reports that he is able to ambulate normally with his walker. Of note, patient reports that three weeks ago, he fell on his right side but was not evaluated for the fall. He denies any other medical complaints. PCP: Dr. Campo Past Medical History Reviewed: Historical Data, Nursing Documentation, Vital Signs Vital Signs: Last Vital Signs Temp 97.5 F L 03/09/17 16:15 Pulse 87 03/09/17 16:15 Resp 22 03/09/17 16:15 BP 143/88 03/09/17 16:15 Pulse Ox 97 03/09/17 16:15 - Medical History PMH: Anxiety, Back Problems, Bipolar Disorder, Personality Disorder, Seizures Denies: Chronic Kidney Disease - Surgical History Other surgeries: C-5 surgery - Family History Family History: States: Unknown Family Hx - Immunization History Hx Tetanus Toxoid Vaccination: No (unknown) - Home Medications Home Medications: Ambulatory Orders Medication Instructions Recorded Aspirin [Ecotrin] 81 mg PO DAILY 12/04/16 Calcium Carbonate/Vitamin D3 1 tab PO BID 12/04/16 [Oyster Shell Calcium Tablet] Cholecalciferol (Vitamin D3) 2,000 unit PO DAILY 12/04/16 [Vitamin D3] Clonazepam [Klonopin] 0.5 mg PO DAILY 12/04/16 Clonazepam [Klonopin] 0.5 mg PO HS 12/04/16 Lamotrigine [Lamictal] 200 mg PO Q12 12/04/16 Latanoprost 0.005% Opht [Xalatan 1 drop BOTHEYES HS 12/04/16 Opht] Polyethylene Glycol 3350 [Miralax] 17 gm PO DAILY 12/04/16 risperiDONE [RisperDAL Tab] 1 mg PO BID 12/04/16 Acetaminophen [Tylenol 325mg tab] 650 mg PO Q4 PRN tab 12/12/16 Zonisamide [Zonegran] 200 mg PO HS #14 capsule 12/12/16 - Allergies Allergies/Adverse Reactions: Allergies Allergy/AdvReac Type Severity Reaction Status Date / Time No Known Allergies Allergy Verified 11/05/16 19:58 Review of Systems ROS Statement: Except As Marked, All Systems Reviewed And Found Negative Constitutional: Negative for: Fever, Chills Musculoskeletal: Positive for: Back Pain. Negative for: Neck Pain Neurological: Negative for: Weakness, Numbness Physical Exam - Reviewed Nursing Documentation Reviewed: Yes Vital Signs Reviewed: Yes - Physical Exam Appears: Positive for: Non-toxic, No Acute Distress. Negative for: Well (obese) Head Exam: Positive for: ATRAUMATIC, NORMAL INSPECTION, NORMOCEPHALIC Skin: Positive for: Normal Color, Warm, DRY Eye Exam: Positive for: EOMI, Normal appearance, PERRL Neck: Positive for: Normal, Supple Cardiovascular/Chest: Positive for: Regular Rate, Rhythm Respiratory: Positive for: Normal Breath Sounds. Negative for: Respiratory Distress Gastrointestinal/Abdominal: Positive for: Normal Exam, Soft. Negative for: Tenderness Back: Positive for: Normal Inspection. Negative for: L CVA Tenderness, R CVA Tenderness Extremity: Positive for: Normal ROM. Negative for: Deformity, Swelling Neurologic/Psych: Positive for: Alert, Oriented. Negative for: Motor/Sensory Deficits - Laboratory Results Result Diagrams: 03/09/17 16:58 03/09/17 16:58 - ECG O2 Sat by Pulse Oximetry: 97 (RA) Pulse Ox Interpretation: Normal Medical Decision Making Medical Decision Making: Time: 1629 Impression: Right flank pain, right back pain Differential: Renal colic, lumbar radiculopathy, musculoskeletal pain Plan: -- CBC -- BMP -- ED Urine dipstick -- CT AP w/o contrast Reassess Patient denies pain medications. Time: 1819 CT AP Impression: 2 millimeter nonobstructing calculus at the midpole left kidney. No evidence of right renal calculi or hydronephrosis. Mild hepatomegaly. Possible MK mild cirrhotic changes. Mild constipation. Trace right pleural effusion and mild cardiomegaly. Acute displaced structure at the right lateral posterior 9th rib. Scribe Attestation: Documented by Tonia Sierra acting as a scribe for Gail Hallman MD. Provider Attestation: All medical record entries made by the Scribe were at my direction and personally dictated by me. I have reviewed the chart and agree that the record accurately reflects my personal performance of the history, physical exam, medical decision making, and the department course for this patient. I have also personally directed, reviewed, and agree with the discharge instructions and disposition. Disposition - Clinical Impression Clinical Impression: Rib pain on right side - Patient ED Disposition Is Patient to be Admitted: No Doctor Will See Patient In The: Office Counseled Patient/Family Regarding: Studies Performed, Diagnosis, Need For Followup - Disposition Referrals: [facility] [Outside] Disposition: Routine/Home Disposition Time: 18:30 Condition: GOOD Additional Instructions: Take advil for pain. Follow up with your PCP in 2-3 days. Instructions: Rib Fracture (ED)
--- NOTE | 2017-03-09 18:13 | CT ---
PROCEDURE: CT Abdomen and Pelvis without intravenous contrast HISTORY: right flank back pain COMPARISON: None. TECHNIQUE: Axial and reformatted coronal and sagittal CT images of the abdomen and pelvis were obtained without IV or oral contrast administration.. Contrast Dose: 0 Radiation dose: Total exam DLP = 1112.14 mGy-cm. This CT exam was performed using one or more of the following dose reduction techniques: Automated exposure control, adjustment of the mA and/or kV according to patient size, and/or use of iterative reconstruction technique. FINDINGS: LOWER THORAX: Trace right pleural effusion is noted. Mild cardiomegaly is also noted. LIVER: UnremarkableMild hepatomegaly is noted. There is heterogeneous coarse attenuation of the liver parenchyma noted. Mild irregularity in the border of the liver noted. Correlate clinically for cirrhosis. No discrete mass lesion noted in this suboptimal noncontrast study. . No gross lesion or ductal dilatation. GALLBLADDER AND BILE DUCTS: Unremarkable. PANCREAS: Unremarkable. No gross lesion or ductal dilatation. SPLEEN: Unremarkable. ADRENALS: Unremarkable. No mass. KIDNEYS AND URETERS: There is 2 millimeter nonobstructing calculus at the midpole left kidney. No evidence of hydronephrosis or hydroureter. Small low-attenuation cyst seen at the midpole right kidney measures 1 centimeter. VASCULATURE: Unremarkable. No aortic aneurysm. BOWEL: Mild constipation is noted. No evidence of bowel obstruction. APPENDIX: Unremarkable. Normal appendix. PERITONEUM: Unremarkable. No free fluid. No free air. LYMPH NODES: Unremarkable. No enlarged lymph nodes. BLADDER: Mild urinary bladder wall thickening noted. REPRODUCTIVE: Unremarkable. BONES: Acute displaced fracture at the lateral posterior aspect of the right 9th rib. OTHER FINDINGS: None. IMPRESSION: 2 millimeter nonobstructing calculus at the midpole left kidney. No evidence of right renal calculi or hydronephrosis. Mild hepatomegaly. Possible MK mild cirrhotic changes. Mild constipation. Trace right pleural effusion and mild cardiomegaly. Acute displaced structure at the right lateral posterior 9th rib.
== END 2017-03-09 19:18 | disposition home or self-care (01) ==
LOC: H.ER 16:09
DX: R07.82 Intercostal pain (principal); F31.9 Bipolar disorder, unspecified; F41.9 Anxiety disorder, unspecified; Z79.82 Long term (current) use of aspirin; K59.00 Constipation, unspecified; N20.0 Calculus of kidney; I51.7 Cardiomegaly

== ENCOUNTER 2017-03-15 19:40 | Emergency (ER) | payer OTHER ==
[2017-03-15 19:47] VITALS: BP 132/85; PULSE 98; RESP 18; TEMP 98.8; O2SAT 99
--- NOTE | 2017-03-15 20:09 | ED PDOC ---
HPI: Trauma/Fall - HPI Time Seen by Provider: 03/15/17 19:40 Chief Complaint (Nursing): Trauma Chief Complaint (Provider): Headache s/p fall History Per: Patient, Other ([facility] counselor) History/Exam Limitations: no limitations Onset/Duration Of Symptoms: Mins (Prior to arrival) Location Of Injury: Left: Head (Abrasion) Associated Symptoms: Dizziness Additional Complaint(s): 57 y/o male with a history of cerebral atrophy, impulse disorder, seizure disorder, anxiety, bipolar disorder, and chronic back pain, who was brought to ED from correction after sustaining a fall. Patient was brought by correction counselor Patient reportedly felt dizzy and fell backwards, sustaining an abrasion to the left aspect of the posterior head, at the parietal area. No LOC , fever, or vomiting. No recent illnesses or seizure activity noted. Currently patient denies having any dizziness, only complaining of a headache. PMD: Dr. Villa Past Medical History Reviewed: Historical Data, Nursing Documentation, Vital Signs Vital Signs: Last Vital Signs Temp 98.8 F 03/15/17 19:44 Pulse 98 H 03/15/17 19:44 Resp 18 03/15/17 19:44 BP 132/85 03/15/17 19:44 Pulse Ox 99 03/15/17 23:12 - Medical History PMH: Anxiety, Back Problems, Bipolar Disorder, CAD, Personality Disorder, Seizures Denies: Chronic Kidney Disease Other PMH: cerebral atrophy, impulse disorder - Surgical History Other surgeries: C5 neck surgery - Family History Family History: States: Unknown Family Hx - Social History Current smoker - smoking cessation education provided: No Alcohol: None Drugs: Denies - Immunization History Hx Tetanus Toxoid Vaccination: No (unknown) - Home Medications Home Medications: Ambulatory Orders Medication Instructions Recorded Aspirin [Ecotrin] 81 mg PO DAILY 12/04/16 Calcium Carbonate/Vitamin D3 1 tab PO BID 12/04/16 [Oyster Shell Calcium Tablet] Cholecalciferol (Vitamin D3) 2,000 unit PO DAILY 12/04/16 [Vitamin D3] Clonazepam [Klonopin] 0.5 mg PO DAILY 12/04/16 Clonazepam [Klonopin] 0.5 mg PO HS 12/04/16 Lamotrigine [Lamictal] 200 mg PO Q12 12/04/16 Latanoprost 0.005% Opht [Xalatan 1 drop BOTHEYES HS 12/04/16 Opht] Polyethylene Glycol 3350 [Miralax] 17 gm PO DAILY 12/04/16 risperiDONE [RisperDAL Tab] 1 mg PO BID 12/04/16 Acetaminophen [Tylenol 325mg tab] 650 mg PO Q4 PRN tab 12/12/16 Zonisamide [Zonegran] 200 mg PO HS #14 capsule 12/12/16 - Allergies Allergies/Adverse Reactions: Allergies Allergy/AdvReac Type Severity Reaction Status Date / Time No Known Allergies Allergy Verified 11/05/16 19:58 Review of Systems ROS Statement: Except As Marked, All Systems Reviewed And Found Negative Constitutional: Negative for: Fever Skin: Positive for: Lesions (Abrasion at left head) Neurological: Positive for: Headache, Dizziness (prior to fall) Physical Exam - Reviewed Nursing Documentation Reviewed: Yes Vital Signs Reviewed: Yes - Physical Exam Appears: Positive for: Well (Appears comfortable), Non-toxic, No Acute Distress Head Exam: Negative for: ATRAUMATIC, NORMAL INSPECTION Skin: Positive for: Normal Color (With a hematoma at the left parietal area, no active bleeding), Warm, Dry Eye Exam: Positive for: EOMI, Normal appearance, PERRL Neck: Positive for: Normal, Painless ROM (No c-spine tenderness), Supple Cardiovascular/Chest: Positive for: Regular Rate, Rhythm. Negative for: Murmur Respiratory: Positive for: Normal Breath Sounds. Negative for: Accessory Muscle Use, Respiratory Distress Gastrointestinal/Abdominal: Positive for: Normal Exam, Soft. Negative for: Tenderness Back: Positive for: Normal Inspection. Negative for: Vertebral Tenderness (c- spine) Extremity: Positive for: Normal ROM, Capillary Refill (< 2 sec). 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 O2 Sat by Pulse Oximetry: 99 (RA) Pulse Ox Interpretation: Normal Medical Decision Making Medical Decision Making: Initial Impression: Headache s/p Fall Time: 19:59 Initial Plan: --Ordered EKG and labs --CT Cervical Spine and Head to r/o fracture or bleed --Pending reevaluation Time: 21:12 CT Head w/o contrast: FINDINGS: Brain: No acute intracranial hemorrhage. No significant white matter disease. No edema. Ventricles: No significant ventriculomegaly. Bones: No acute displaced fracture. Hyperostosis frontalis is incidentally detected. Sinuses: Unremarkable as visualized. No acute sinusitis. Mastoid air cells: Unremarkable as visualized. No mastoid effusion. IMPRESSION: No acute intracranial hemorrhage, or suspicious mass effect. Time: 21:16 CT Cervical Spine w/o contrast: FINDINGS: Vertebrae: No acute fracture. 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 Discs/spinal canal/neural foramina: No acute findings. Metallic cage is again identified at the level of C4-C6. Degenerative disease, with osteophyte formation, disc space narrowing, endplate changes and vacuum phenomena. Thickening of the transverse ligament is suspected with accompanying synovial hypertrophy. Soft tissues: Symmetric Lung apices: The visualized lung apices are clear. IMPRESSION: Degenerative disease, without acute fracture. Time: 21:30 --Labs reviewed, revealing no significant abnormalities Clinical Impression: Fall Upon provider reevaluation patient is medically stable, and requires no further treatment in the ED at this time. Patient will be discharged home. Counseling was provided and all questions were answered regarding diagnosis and need for follow up with PMD in 1-2 days. There is agreement to discharge plan. Return if symptoms persist or worsen. Time: 22:15 --Patient was given discharge paperwork --Upon leaving the room, patient fell backwards when trying to grab his walker, and hit his head --Ordered repeat CT Head w/o contrast 2306 CT HEAD FINDINGS Brain: No acute intracranial hemorrhage. No significant white matter disease. No edema. Ventricles: No significant ventriculomegaly. Bones: No acute displaced fracture. Stable right nasal bone fracture. Sinuses: Mucoperiosteal thickening bilateral ethmoid sinuses. Mastoid air cells: Unremarkable as visualized. No mastoid effusion. IMPRESSION: No acute intracranial hemorrhage, or suspicious mass effect. Patient is neurologically at baseline. Sustained small hematoma on left parietal aspect after fall. Patient is medically stable for discharge back to correction. Scribe Attestation: Documented by Stacey Odell and Marnie Holder, acting as a scribe for Brando Cruz MD Provider Scribe Attestation: All medical record entries made by the Scribe were at my direction and personally dictated by me. I have reviewed the chart and agree that the record accurately reflects my personal performance of the history, physical exam, medical decision making, and the department course for this patient. I have also personally directed, reviewed, and agree with the discharge instructions and disposition. Disposition - Clinical Impression Clinical Impression: Fall, Head trauma - Patient ED Disposition Is Patient to be Admitted: No Counseled Patient/Family Regarding: Studies Performed, Diagnosis, Need For Followup - Disposition Disposition: Routine/Home Disposition Time: 21:20 Condition: STABLE Additional Instructions: follow up with your primary doctor in 1-2 days return to the ED with any worsening or concerning symptoms. Instructions: Fall Prevention for Older Adults (ED), Head Injury (ED), Fall Prevention (ED) Forms: [employer] (Italian)
[2017-03-15 20:54] LABS: BASO % 0.7 % (0.0-2.0); EOS # 0.1 K/uL (0.0-0.7); EOS % 3.2 % (0.0-4.0); HEMATOCRIT 44.4 % (35.0-51.0); LYMPH # 1.4 K/uL (1.0-4.3); LYMPH % 31.4 % (20.0-40.0); MEAN CELL VOLUME 86.6 fl (80.0-94.0); MEAN CORPUSCULAR HEMOGLOBIN 28.4 pg (27.0-31.0); MEAN CORPUSCULAR HGB CONC 32.8 g/dL (33.0-37.0); MONO # 0.6 K/uL (0.0-0.8); MONO % 12.2 % (0.0-10.0); NEUT # 2.4 K/uL (1.8-7.0); NEUT % 52.5 % (50.0-75.0); NRBC % 0.1 % (0.0-0.0); RED CELL DISTRIBUTION WIDTH 15.4 % (11.5-14.5); WHITE BLOOD COUNT 4.5 K/uL (4.8-10.8)
[2017-03-15 21:03] LABS: ALB/GLOB RATIO 1.5 (1.0-2.1); ALKALINE PHOSPHATASE 90 U/L (38-126); ALT/SGPT 37 U/L (21-72); AST/SGOT 20 U/L (17-59); BILIRUBIN,TOTAL 0.2 mg/dl (0.2-1.3); BLOOD UREA NITROGEN 18 mg/dl (9-20); CALCIUM 9.9 mg/dL (8.4-10.2); CARBON DIOXIDE 22 mmol/L (22-30); CHLORIDE 106 mmol/L (98-107); GFR AFRICAN-AMERICAN 44; GLUCOSE,RANDOM 104 mg/dL (75-110); POTASSIUM 4.3 MMOL/L (3.6-5.0); SODIUM 139 mmol/l (132-148); TOTAL PROTEIN 7.2 G/DL (6.3-8.2)
--- NOTE | 2017-03-15 21:12 | CT ---
EXAM: CT Head Without Intravenous Contrast CLINICAL HISTORY: 57 years old, male; Injury or trauma; Fall; Initial encounter; Blunt trauma (contusions or hematomas); Additional info: Headache sp fall TECHNIQUE: Axial computed tomography images of the head/brain without intravenous contrast. All CT scans at this facility use one or more dose reduction techniques, viz.: automated exposure control; ma/kV adjustment per patient size (including targeted exams where dose is matched to indication; i.e. head); or iterative reconstruction technique. Coronal and sagittal reformatted images were created and reviewed. COMPARISON: CT - HEAD W/O CONTRAST 01/07/2017 7:08:41 PM FINDINGS: Brain: No acute intracranial hemorrhage. No significant white matter disease. No edema. Ventricles: No significant ventriculomegaly. Bones: No acute displaced fracture. Hyperostosis frontalis is incidentally detected. Sinuses: Unremarkable as visualized. No acute sinusitis. Mastoid air cells: Unremarkable as visualized. No mastoid effusion. IMPRESSION: No acute intracranial hemorrhage, or suspicious mass effect.
--- NOTE | 2017-03-15 21:17 | CT ---
EXAM: CT Cervical Spine Without Intravenous Contrast CLINICAL HISTORY: 57 years old, male; Injury or trauma; Fall; Initial encounter; Blunt trauma TECHNIQUE: Axial computed tomography images of the cervical spine without intravenous contrast. All CT scans at this facility use one or more dose reduction techniques, viz.: automated exposure control; ma/kV adjustment per patient size (including targeted exams where dose is matched to indication; i.e. head); or iterative reconstruction technique. Coronal reformatted images were created and reviewed. COMPARISON: CT - CERVICAL SPINE W/O CONTRAST 01/07/2017 7:10:41 PM FINDINGS: Vertebrae: No acute fracture. 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 Discs/spinal canal/neural foramina: No acute findings. Metallic cage is again identified at the level of C4-C6. Degenerative disease, with osteophyte formation, disc space narrowing, endplate changes and vacuum phenomena. Thickening of the transverse ligament is suspected with accompanying synovial hypertrophy. Soft tissues: Symmetric Lung apices: The visualized lung apices are clear. IMPRESSION: Degenerative disease, without acute fracture.
--- NOTE | 2017-03-15 23:03 | CT ---
EXAM: CT Head Without Intravenous Contrast CLINICAL HISTORY: 57 years old, male; Injury or trauma; Fall; Initial encounter; Laceration; Without loss of consciousness; Without residual foreign body; Head, generalized; Injury date: Today 22: 15 hrs; Injury details: Pt was discharged when falling backwards trying to grab his walker. CVA seizures bipolar. C-spine SX; Prior surgery; Surgery date: 6+ months; Surgery type: Cspine SX; Additional info: Fall after discharge on way out of hospital TECHNIQUE: Axial computed tomography images of the head/brain without intravenous contrast. All CT scans at this facility use one or more dose reduction techniques, viz.: automated exposure control; ma/kV adjustment per patient size (including targeted exams where dose is matched to indication; i.e. head); or iterative reconstruction technique. Coronal and sagittal reformatted images were created and reviewed. COMPARISON: CT - HEAD W/O CONTRAST 03/15/2017 8:42:13 PM FINDINGS: Brain: No acute intracranial hemorrhage. No significant white matter disease. No edema. Ventricles: No significant ventriculomegaly. Bones: No acute displaced fracture. Stable right nasal bone fracture. Sinuses: Mucoperiosteal thickening bilateral ethmoid sinuses. Mastoid air cells: Unremarkable as visualized. No mastoid effusion. IMPRESSION: No acute intracranial hemorrhage, or suspicious mass effect.
== END 2017-03-15 23:45 | disposition home or self-care (01) ==
LOC: H.ER 19:40
DX: S09.90XA Unspecified injury of head, initial encounter (principal); W19.XXXA Unspecified fall, initial encounter; Y92.89 Other specified places as the place of occurrence of the external cause; F31.9 Bipolar disorder, unspecified; F41.9 Anxiety disorder, unspecified; I25.10 Atherosclerotic heart disease of native coronary artery without angina pectoris; Z79.82 Long term (current) use of aspirin

== ENCOUNTER 2017-03-17 08:36 | Emergency (ER) | payer OTHER ==
[2017-03-17 08:39] VITALS: BMI 30.6
[2017-03-17 08:41] VITALS: TEMP 97.9; O2SAT 97
[2017-03-17 09:42] LABS: BASO % 0.7 % (0.0-2.0); EOS # 0.2 K/uL (0.0-0.7); HEMATOCRIT 44.3 % (35.0-51.0); LYMPH # 2.2 K/uL (1.0-4.3); LYMPH % 42.7 % (20.0-40.0); MEAN CELL VOLUME 86.5 fl (80.0-94.0); MEAN CORPUSCULAR HEMOGLOBIN 28.7 pg (27.0-31.0); MEAN CORPUSCULAR HGB CONC 33.1 g/dL (33.0-37.0); MEAN PLATELET VOLUME 8.4 fl (7.2-11.7); MONO # 0.3 K/uL (0.0-0.8); MONO % 6.5 % (0.0-10.0); NEUT # 2.4 K/uL (1.8-7.0); NEUT % 47.1 % (50.0-75.0); NRBC % 0.1 % (0.0-0.0); RED CELL DISTRIBUTION WIDTH 15.6 % (11.5-14.5); WHITE BLOOD COUNT 5.1 K/uL (4.8-10.8)
[2017-03-17 09:48] LABS: ALB/GLOB RATIO 1.5 (1.0-2.1); ALKALINE PHOSPHATASE 81 U/L (38-126); ALT/SGPT 30 U/L (21-72); AST/SGOT 27 U/L (17-59); BILIRUBIN,TOTAL 0.5 mg/dl (0.2-1.3); BLOOD UREA NITROGEN 23 mg/dl (9-20); CALCIUM 9.6 mg/dL (8.4-10.2); CARBON DIOXIDE 24 mmol/L (22-30); CHLORIDE 108 mmol/L (98-107); GFR AFRICAN-AMERICAN > 60; GLUCOSE,RANDOM 114 mg/dL (75-110); MAGNESIUM 1.9 MG/DL (1.6-2.3); PHOSPHOROUS 3.2 mg/dl (2.5-4.5); POTASSIUM 4.6 MMOL/L (3.6-5.0); SODIUM 142 mmol/l (132-148); TOTAL PROTEIN 7.2 G/DL (6.3-8.2)
--- NOTE | 2017-03-17 09:59 | ED PDOC ---
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 Aide reports that patient seemed confused this morning ( for example he was urinating but stated that he was having a bowel movement) and also seemed more agitated that usual. For example he "tried to run over" another residents foot with his walker. Denies any focal weakness. Patient was seen in ED 2 days ago for fall. Denies another fall. Patient is AAOx3, but history is limited by mental retardation. He reports that he has no complaints and is redirectable. Aide reports that patient has psychiatric follow-up and does not need to see the psychiatrist today. Patient reports that he is hungry. Denies chest pain, shortness of breath, nausea, vomiting, and abdominal pain. Past Medical History Reviewed: Historical Data, Nursing Documentation, Vital Signs Vital Signs: Last Vital Signs Temp 97.9 F 03/17/17 08:39 Pulse 98 H 03/17/17 08:39 Resp 18 03/17/17 08:39 BP 131/94 H 03/17/17 08:39 Pulse Ox 97 03/17/17 08:39 - Medical History PMH: Anxiety, Back Problems, Bipolar Disorder, CAD, Personality Disorder, Seizures Denies: Chronic Kidney Disease - Family History Family History: States: Unknown Family Hx - Social History Current smoker - smoking cessation education provided: No Alcohol: None Drugs: Denies - Immunization History Hx Tetanus Toxoid Vaccination: No (unknown) - Home Medications Home Medications: Ambulatory Orders Medication Instructions Recorded Aspirin [Ecotrin] 81 mg PO DAILY 12/04/16 Calcium Carbonate/Vitamin D3 1 tab PO BID 12/04/16 [Oyster Shell Calcium Tablet] Cholecalciferol (Vitamin D3) 2,000 unit PO DAILY 12/04/16 [Vitamin D3] Clonazepam [Klonopin] 0.5 mg PO DAILY 12/04/16 Clonazepam [Klonopin] 0.5 mg PO HS 12/04/16 Lamotrigine [Lamictal] 200 mg PO Q12 12/04/16 Latanoprost 0.005% Opht [Xalatan 1 drop BOTHEYES HS 12/04/16 Opht] Polyethylene Glycol 3350 [Miralax] 17 gm PO DAILY 12/04/16 risperiDONE [RisperDAL Tab] 1 mg PO BID 12/04/16 Acetaminophen [Tylenol 325mg tab] 650 mg PO Q4 PRN tab 12/12/16 Zonisamide [Zonegran] 200 mg PO HS #14 capsule 12/12/16 - Allergies Allergies/Adverse Reactions: Allergies Allergy/AdvReac Type Severity Reaction Status Date / Time No Known Allergies Allergy Verified 11/05/16 19:58 Review of Systems ROS Statement: Except As Marked, All Systems Reviewed And Found Negative Constitutional: Negative for: Fever Cardiovascular: Negative for: Chest Pain Respiratory: Negative for: Cough, Shortness of Breath Gastrointestinal: Negative for: Nausea, Vomiting, Abdominal Pain, Diarrhea, Constipation Musculoskeletal: Negative for: Neck Pain Skin: Negative for: Rash Neurological: Negative for: Incoordination, Change in Speech, Dizziness Psych: Negative for: Anxiety, Depression Physical Exam - Reviewed Nursing Documentation Reviewed: Yes Vital Signs Reviewed: Yes - Physical Exam Appears: Positive for: Well, Non-toxic, No Acute Distress Head Exam: Positive for: ATRAUMATIC, NORMAL INSPECTION, NORMOCEPHALIC Skin: Positive for: Normal Color, Warm, Dry Eye Exam: Positive for: EOMI, Normal appearance, PERRL ENT: Positive for: Normal ENT Inspection Neck: Positive for: Normal, Painless ROM, Supple Cardiovascular/Chest: Positive for: Regular Rate, Rhythm. Negative for: Murmur Respiratory: Positive for: Normal Breath Sounds. 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 Negative for: Motor/Sensory Deficits - Laboratory Results Result Diagrams: 03/17/17 09:00 03/17/17 09:00 - ECG O2 Sat by Pulse Oximetry: 97 (RA) Pulse Ox Interpretation: Normal Medical Decision Making Medical Decision Making: Initial Impression: 57 y/o male with increased agitation today. Hx of falls. Home health aide reports symptoms have now resolved and that he is at baseline. Denies focal deficits. Patient is frustrated to be in ED as he denies complaints, but cooperative and redirectable. Initial Plan: --Head w/o contrast [CT] --Chest portable [RAD] --Urinalysis --reevaluation [address] FINDINGS: HEMORRHAGE: No intracranial hemorrhage. BRAIN: There is no mass, mass effect or abnormal extra-axial fluid collection. VENTRICLES: The ventricles are normal in size, shape and configuration. CALVARIUM: There is no calvarial fracture. There is a small right posterior parietal scalp hematoma. PARANASAL SINUSES: There is mild mucoperiosteal thickening in the posterior ethmoid sinuses. The remaining paranasal sinuses are predominantly clear. MASTOID AIR CELLS: Predominantly clear. OTHER FINDINGS: None. IMPRESSION: No acute intracranial abnormality. 1030 Chest X-Ray FINDINGS: LUNGS: There are low lung volumes. No focal consolidation. PLEURA: No significant pleural effusion identified, no pneumothorax apparent. CARDIOVASCULAR: Normal. OSSEOUS STRUCTURES: No significant abnormalities. VISUALIZED UPPER ABDOMEN: Normal. OTHER FINDINGS: None. IMPRESSION: No acute findings. Low lung volumes may be related to poor inspiratory effort. Scribe Attestation: Documented by Bryan Shay, acting as a scribe for Cheryl Quintero MD. Provider Scribe Attestation: All medical record entries made by the Scribe were at my direction and personally dictated by me. I have reviewed the chart and agree that the record accurately reflects my personal performance of the history, physical exam, medical decision making, and the department course for this patient. I have also personally directed, reviewed, and agree with the discharge instructions and disposition. 10:40AM CT head negative. Cxray negative. Labs grossly normal. UA negative. Patient is ambulating around the ED with his walker without issue. Aide reports that this is patient's baseline and she feels comfortable taking patient home. Will follow-up with PMD and psychiatrist. Disposition - Clinical Impression Clinical Impression: Agitation - Disposition Disposition: Routine/Home Disposition Time: 11:34 Condition: GOOD Additional Instructions: Follow up with your psychiatrist. Take all medication as prescribed. Return to ED if condition worsens. Follow-up with PMD within 2 days. Forms: [employer] (Yoruba)
--- NOTE | 2017-03-17 10:23 | CT ---
PROCEDURE: CT HEAD WITHOUT CONTRAST. HISTORY: altered COMPARISON: None available. TECHNIQUE: Axial computed tomography images were obtained through the head/brain without intravenous contrast. Radiation dose: Total exam DLP = 1668.77 mGy-cm. This CT exam was performed using one or more of the following dose reduction techniques: Automated exposure control, adjustment of the mA and/or kV according to patient size, and/or use of iterative reconstruction technique. FINDINGS: HEMORRHAGE: No intracranial hemorrhage. BRAIN: There is no mass, mass effect or abnormal extra-axial fluid collection. VENTRICLES: The ventricles are normal in size, shape and configuration. CALVARIUM: There is no calvarial fracture. There is a small right posterior parietal scalp hematoma. PARANASAL SINUSES: There is mild mucoperiosteal thickening in the posterior ethmoid sinuses. The remaining paranasal sinuses are predominantly clear. MASTOID AIR CELLS: Predominantly clear. OTHER FINDINGS: None. IMPRESSION: No acute intracranial abnormality.
--- NOTE | 2017-03-17 10:32 | RAD ---
HISTORY: altered COMPARISON: 12/05/2016. FINDINGS: LUNGS: There are low lung volumes. No focal consolidation. PLEURA: No significant pleural effusion identified, no pneumothorax apparent. CARDIOVASCULAR: Normal. OSSEOUS STRUCTURES: No significant abnormalities. VISUALIZED UPPER ABDOMEN: Normal. OTHER FINDINGS: None. IMPRESSION: No acute findings. Low lung volumes may be related to poor inspiratory effort.
[2017-03-17 11:24] LABS: RBC URINE 2 /hpf (0-3); URINE BILIRUBIN NEGATIVE (NEGATIVE); URINE COLOR YELLOW (YELLOW); URINE GLUCOSE (UA) NEG (Normal); URINE KETONE NEGATIVE (NEGATIVE); URINE LEUKOCYTE ESTERASE NEG Leu/uL (Negative); URINE PROTEIN NEGATIVE (NEGATIVE); URINE UROBILINOGEN 0.2-1.0 mg/dL (0.2-1.0); WBC URINE < 1 /hpf (0-5)
[2017-03-17 11:31] LABS: URINE BLOOD NEGATIVE (NEGATIVE)
[2017-03-17 11:47] VITALS: BP 131/82; PULSE 82; RESP 16
== END 2017-03-17 11:47 | disposition home or self-care (01) ==
LOC: H.ER 08:36
DX: R45.1 Restlessness and agitation (principal); F31.9 Bipolar disorder, unspecified; F41.9 Anxiety disorder, unspecified; F79 Unspecified intellectual disabilities; G40.909 Epilepsy, unspecified, not intractable, without status epilepticus; I25.10 Atherosclerotic heart disease of native coronary artery without angina pectoris; Z79.82 Long term (current) use of aspirin

== ENCOUNTER 2017-06-09 09:40 | Emergency (ER) | payer OTHER ==
[2017-06-09 09:41] VITALS: BMI 30.6
[2017-06-09 09:48] VITALS: BP 124/64; PULSE 103; RESP 16; TEMP 97; O2SAT 97
--- NOTE | 2017-06-09 11:17 | ED PDOC ---
HPI: Head Injury Time Seen by Provider: 06/09/17 10:55 Chief Complaint (Nursing): Medical Clearance Chief Complaint (Provider): Head injury, fell off bed last night, > 5 hours History Per: Patient, Other (Home residential care officer) Patient States: Fell Striking Head Description Of Injury (Context): Pt states he rolled off the bed and hit head on night stand last night Severity: None Additional Complaint(s): No pain. Pt ate breakfast. Home health aid states he had no visible injury and denied pain so she did not bring him last night however in the am she was told told to come to the ER for evaluation for head injury because it is protocol. Past Medical History Reviewed: Historical Data, Nursing Documentation, Vital Signs Vital Signs: Last Vital Signs Temp 97 F L 06/09/17 09:45 Pulse 103 H 06/09/17 09:45 Resp 16 06/09/17 09:45 BP 124/64 06/09/17 09:45 Pulse Ox 97 06/09/17 09:45 - Medical History PMH: Anxiety, Back Problems, Bipolar Disorder, CAD, Personality Disorder, Seizures Denies: Chronic Kidney Disease - Surgical History Surgical History: No Surg Hx - Family History Family History: States: Unknown Family Hx - Living Arrangements Living Arrangements: With Family - Social History Current smoker - smoking cessation education provided: No Alcohol: None Drugs: Denies - Immunization History Hx Tetanus Toxoid Vaccination: No (unknown) - Home Medications Home Medications: Ambulatory Orders Medication Instructions Recorded Aspirin [Ecotrin] 81 mg PO DAILY 12/04/16 Calcium Carbonate/Vitamin D3 1 tab PO BID 12/04/16 [Oyster Shell Calcium Tablet] Cholecalciferol (Vitamin D3) 2,000 unit PO DAILY 12/04/16 [Vitamin D3] Clonazepam [Klonopin] 0.5 mg PO DAILY 12/04/16 Clonazepam [Klonopin] 0.5 mg PO HS 12/04/16 Lamotrigine [Lamictal] 200 mg PO Q12 12/04/16 Latanoprost 0.005% Opht [Xalatan 1 drop BOTHEYES HS 12/04/16 Opht] Polyethylene Glycol 3350 [Miralax] 17 gm PO DAILY 12/04/16 risperiDONE [RisperDAL Tab] 1 mg PO BID 12/04/16 Acetaminophen [Tylenol 325mg tab] 650 mg PO Q4 PRN tab 12/12/16 Zonisamide [Zonegran] 200 mg PO HS #14 capsule 12/12/16 - Allergies Allergies/Adverse Reactions: Allergies Allergy/AdvReac Type Severity Reaction Status Date / Time No Known Allergies Allergy Verified 06/09/17 09:45 Review of Systems ROS Statement: Except As Marked, All Systems Reviewed And Found Negative Constitutional: Negative for: Fever, Chills Respiratory: Negative for: Cough Gastrointestinal: Negative for: Nausea Neurological: Negative for: Seizures, Headache Physical Exam - Reviewed Nursing Documentation Reviewed: Yes Vital Signs Reviewed: Yes - Physical Exam Appears: Positive for: Well, Non-toxic, No Acute Distress Head Exam: Positive for: ATRAUMATIC, NORMAL INSPECTION, NORMOCEPHALIC Skin: Positive for: Normal Color, Warm, DRY Eye Exam: Positive for: Normal appearance, EOMI. Negative for: PERRL ENT: Positive for: Normal ENT Inspection Neck: Positive for: Normal, Painless ROM Cardiovascular/Chest: Positive for: Regular Rate, Rhythm Respiratory: Positive for: CNT, Normal Breath Sounds Back: Positive for: Normal Inspection Extremity: Positive for: Normal ROM Neurologic/Psych: Positive for: Alert, Oriented - ECG O2 Sat by Pulse Oximetry: 97 Medical Decision Making Medical Decision Making: Right pupil is not reacting. Pt reports surgery on the right eye in the past and is not sure if pupils are reactive. Head Ct ordered. Head CT normal. Disposition - Clinical Impression Clinical Impression: Head injury - Patient ED Disposition Is Patient to be Admitted: No Counseled Patient/Family Regarding: Diagnosis, Need For Followup - Disposition Disposition: Routine/Home Disposition Time: 12:28 Condition: GOOD Instructions: Head Injury (ED) Forms: [employer] (Zimbabwean)
--- NOTE | 2017-06-09 12:04 | CT ---
PROCEDURE: CT HEAD WITHOUT CONTRAST. HISTORY: head injury COMPARISON: Noncontrast head CT performed 03/17/17 TECHNIQUE: Axial computed tomography images were obtained through the head/brain without intravenous contrast. Radiation dose: Total exam DLP = 886.71 mGy-cm. This CT exam was performed using one or more of the following dose reduction techniques: Automated exposure control, adjustment of the mA and/or kV according to patient size, and/or use of iterative reconstruction technique. FINDINGS: HEMORRHAGE: No intracranial hemorrhage. BRAIN: No mass effect or edema. The marie-white matter differentiation appears intact. Please note that MRI with diffusion imaging is more sensitive in the detection of acute ischemic event. VENTRICLES: No hydrocephalus. CALVARIUM: Unremarkable. PARANASAL SINUSES: Unremarkable as visualized. No significant inflammatory changes. MASTOID AIR CELLS: Unremarkable as visualized. No inflammatory changes. OTHER FINDINGS: None. IMPRESSION: No acute intracranial pathology identified.
== END 2017-06-09 12:55 | disposition home or self-care (01) ==
LOC: H.ER 09:40
DX: S09.90XA Unspecified injury of head, initial encounter (principal); W06.XXXA Fall from bed, initial encounter; Y92.89 Other specified places as the place of occurrence of the external cause; F31.9 Bipolar disorder, unspecified; F41.9 Anxiety disorder, unspecified; I25.10 Atherosclerotic heart disease of native coronary artery without angina pectoris; Z79.82 Long term (current) use of aspirin

== ENCOUNTER 2018-05-26 04:43 | Emergency (ER) | payer OTHER ==
[2018-05-26 04:43] VITALS: BMI 30.6
[2018-05-26 04:52] VITALS: BP 130/89; PULSE 88; RESP 16; TEMP 98.4; O2SAT 96
[2018-05-26] MEDS ORDERED: Tdap Vaccine 0.5 ml Vial (10-64 yrs) IM ONE ×2 (05:10→05:51)
--- NOTE | 2018-05-26 05:18 | ED PDOC ---
HPI: Trauma/Fall - HPI Time Seen by Provider: 05/26/18 04:52 Chief Complaint (Nursing): Seizure Chief Complaint (Provider): Scalp laceration History Per: Patient History/Exam Limitations: no limitations Onset/Duration Of Symptoms: Sudden Onset (Prior to arrival) Additional Complaint(s): Noel Wolf, a 58 year old male with a past medical history of seizures, anxiety, and bipolar disorder, presents to the ED after having a seizure. Patient reports living at a penit[facility]iary, where the seizure occurred. Staff at the penitentiary heard the fall and found the patient having hit his head on a door handle. The patient did not lose consciousness nor was postictal when found. On arrival to the ED, the patient is alert and orientated with no active complaints. PCP: Omar Almanza Past Medical History Reviewed: Historical Data, Nursing Documentation, Vital Signs Vital Signs: Last Vital Signs Temp 98.4 F 05/26/18 04:45 Pulse 88 05/26/18 04:45 Resp 16 05/26/18 04:45 BP 130/89 05/26/18 04:45 Pulse Ox 96 05/26/18 04:45 - Medical History PMH: Anxiety, Back Problems, Bipolar Disorder, CAD, Personality Disorder, Seizures Denies: Chronic Kidney Disease - Family History Family History: States: Unknown Family Hx - Social History Current smoker - smoking cessation education provided: No Alcohol: None Drugs: Denies - Immunization History Hx Tetanus Toxoid Vaccination: No (unknown) - Home Medications Home Medications: Ambulatory Orders Medication Instructions Recorded Aspirin [Ecotrin] 81 mg PO DAILY 12/04/16 Calcium Carbonate/Vitamin D3 1 tab PO BID 12/04/16 [Oyster Shell Calcium Tablet] Cholecalciferol (Vitamin D3) 2,000 unit PO DAILY 12/04/16 [Vitamin D3] Clonazepam [Klonopin] 0.5 mg PO DAILY 12/04/16 Clonazepam [Klonopin] 0.5 mg PO HS 12/04/16 Lamotrigine [Lamictal] 200 mg PO Q12 12/04/16 Latanoprost 0.005% Opht [Xalatan 1 drop BOTHEYES HS 12/04/16 Opht] Polyethylene Glycol 3350 [Miralax] 17 gm PO DAILY 12/04/16 risperiDONE [RisperDAL Tab] 1 mg PO BID 12/04/16 Acetaminophen [Tylenol 325mg tab] 650 mg PO Q4 PRN tab 12/12/16 Zonisamide [Zonegran] 200 mg PO HS #14 capsule 12/12/16 - Allergies Allergies/Adverse Reactions: Allergies Allergy/AdvReac Type Severity Reaction Status Date / Time No Known Allergies Allergy Verified 06/09/17 09:45 Review of Systems ROS Statement: Except As Marked, All Systems Reviewed And Found Negative Physical Exam - Reviewed Nursing Documentation Reviewed: Yes Vital Signs Reviewed: Yes - Physical Exam Head Exam: Positive for: NORMAL INSPECTION (1.5 cm linear laceration on occipital scalp) - Laboratory Results Result Diagrams: 05/26/18 05:05 05/26/18 05:05 - ECG O2 Sat by Pulse Oximetry: 96 (RA) Pulse Ox Interpretation: Normal Medical Decision Making Medical Decision Making: Time: 454 Initial Impression: 58 year old male with minor scalp laceration from seizure with fall Initial plan: --labs 0612 --Labs were reviewed and showed no significant clinical abnormalities. Patient has been seizure free in ED. Patient is stable for discharge home in company of penitentiary staff member. Diagnosis seizure and scalp laceration. Upon provider reevaluation patient is feeling better, is medically stable, and requires no further treatment in the ED at this time. Patient will be discharged home. Counseling was provided and all questions were answered regarding diagnosis. There is agreement to discharge plan. Return if symptoms persist or worsen. Scribe Attestation: Documented by Bunny Miller, acting as a scribe for Lyndon Hays MD. Provider Scribe Attestation: All medical record entries made by the Scribe were at my direction and personally dictated by me. I have reviewed the chart and agree that the record accurately reflects my personal performance of the history, physical exam, medical decision making, and the department course for this patient. I have also personally directed, reviewed, and agree with the discharge instructions and disposition. Disposition - Clinical Impression Clinical Impression: Scalp laceration, Witnessed seizure - Patient ED Disposition Is Patient to be Admitted: No - Disposition Disposition: Routine/Home Disposition Time: 06:12 Condition: STABLE Instructions: Laceration Repair With Carbon (DC), Seizures Forms: [facility] (Guyanese)
[2018-05-26 05:33] LABS: BASO % 0.9 % (0.0-2.0); EOS # 0.1 K/uL (0.0-0.7); EOS % 3.2 % (0.0-4.0); HEMOGLOBIN 14.9 g/dL (12.0-18.0); LYMPH # 1.6 K/uL (1.0-4.3); LYMPH % 37.6 % (20.0-40.0); MEAN CELL VOLUME 87.3 fl (80.0-94.0); MEAN CORPUSCULAR HEMOGLOBIN 28.6 pg (27.0-31.0); MEAN CORPUSCULAR HGB CONC 32.7 g/dL (33.0-37.0); MEAN PLATELET VOLUME 8.5 fl (7.2-11.7); MONO # 0.3 K/uL (0.0-0.8); MONO % 7.9 % (0.0-10.0); NEUT # 2.2 K/uL (1.8-7.0); NEUT % 50.4 % (50.0-75.0); NRBC % 0.2 % (0.0-0.0); RBC 5.23 Mil/uL (4.40-5.90); RED CELL DISTRIBUTION WIDTH 14.9 % (11.5-14.5); WHITE BLOOD COUNT 4.3 K/uL (4.8-10.8)
[2018-05-26 05:45] LABS: ALB/GLOB RATIO 1.5 (1.0-2.1); ALBUMIN 4.4 g/dL (3.5-5.0); ALT/SGPT 31 U/L (21-72); AST/SGOT 30 U/L (17-59); BLOOD UREA NITROGEN 13 mg/dl (9-20); CALCIUM 9.6 mg/dL (8.4-10.2); GFR NON-AFRICAN AMERICAN 52
== END 2018-05-26 07:06 | disposition home or self-care (01) ==
LOC: H.ER 04:43
DX: G40.909 Epilepsy, unspecified, not intractable, without status epilepticus (principal); S01.01XA Laceration without foreign body of scalp, initial encounter; W19.XXXA Unspecified fall, initial encounter; Y92.89 Other specified places as the place of occurrence of the external cause